=== PATIENT | female | born 1965 | race Caucasian/White ===

== ENCOUNTER → 2020-03-06 10:28 | Outpatient (BNVA) | payer MEDICAID, SELFPAY | PROVIDERS: PCP Physician Assistant; Visit Provider Physician Assistant | DX: Z76.89 Persons encountering health services in other specified circumstances (principal) ==

== ENCOUNTER → 2020-03-16 13:14 | Outpatient (BNVA) | payer MEDICAID, SELFPAY | PROVIDERS: Visit Provider Surgery | DX: E66.9 Obesity, unspecified (principal); Z68.34 Body mass index [BMI] 34.0-34.9, adult; Z90.3 Acquired absence of stomach [part of]; Z71.3 Dietary counseling and surveillance | CPT/HCPCS: 99212; 99214 ==

== ENCOUNTER → 2020-03-23 08:26 | Outpatient (BNVA) | payer MEDICAID, SELFPAY | PROVIDERS: PCP Physician Assistant; Referring Provider Physician Assistant; Visit Provider Physician Assistant | DX: A04.8 Other specified bacterial intestinal infections (principal) | CPT/HCPCS: 99211 ==

== ENCOUNTER 2020-03-24 15:05 | Outpatient (REF) | payer MEDICAID, SELFPAY ==
[2020-03-25 14:02] LABS: H Pylori Breath Test DETECTED (NOT DETECTED)
== END 2020-03-24 15:06 | disposition home or self-care (01) ==
LOC: HO.LNP 15:05
PROVIDERS: Visit Provider Surgery
DX: Z01.818 Encounter for other preprocedural examination (principal)
CPT/HCPCS: 83013

== ENCOUNTER 2020-03-27 12:28 | Outpatient (REF) | payer MEDICAID, SELFPAY ==
[2020-03-27 13:45] LABS: MANUAL DIFF FLAG NO
[2020-03-27 13:50] LABS: Basophils Absolute Auto 0.1 X10*3/uL (0.0-0.2); Basophils Percent Auto 0.8 % (0-2); Eosinophils Absolute Auto 0.1 X10*3/uL (0.0-0.4); Eosinophils Percent Auto 2.1 % (0-4); Hematocrit 40.4 % (37-47); Hemoglobin 13.1 g/dl (12.0-16.0); Imm Gran Abs Auto 0.01 X10*3/uL (0.00-0.03); Imm Gran Pct Auto 0.2 % (0.0-0.4); Lymphocytes Absolute Auto 2.6 X10*3/uL (1.2-4.9); Lymphocytes Percent Auto 38.9 % (20-40); Mean Corpuscular HGB Conc 32.4 g/dl (31.0-35.0); Mean Corpuscular Hemoglobin 29.7 pg (27.0-33.0); Mean Corpuscular Volume 91.6 fL (80-98); Mean Platelet Volume 9.8 fL (9.4-12.3); Monocytes Absolute Auto 0.5 X10*3/uL (0.1-1.2); Monocytes Percent Auto 6.8 % (2-11); Neutrophils Absolute Auto 3.4 X10*3/uL (2.0-8.3); Neutrophils Percent Auto 51.2 % (45-73); Platelet Count 318 X10*3/uL (160-400); Red Blood Count 4.41 X10*6/uL (4.20-5.50); Red Cell Distribution Width 13.4 % (11.0-16.0); White Blood Count 6.6 X10*3/uL (4.8-10.8)
[2020-03-27 14:22] LABS: C Reactive Protein 0.84 mg/dL (< or = 0.50); Iron 88 mcg/dL (30-160); Percent Iron Saturation 28 % (15-50); Total Iron Binding Capacity 319 mcg/dL (228-428); Unsaturated Iron Binding 231 ug/dL
[2020-03-27 14:25] LABS: Estimated Average Glucose 114 mg/dL; Hemoglobin A1c % 5.6 %
[2020-03-27 14:44] LABS: Ferritin 60 ng/mL (10-250); TSH reflex Free T4 0.92 mIU/mL (0.32-4.0); Vitamin D 25-OH Total 49.4 ng/mL (>30)
[2020-03-27 15:01] LABS: Folate 2.6 ng/mL (> or = 4.0); Vitamin B12 779 pg/mL (200-900)
[2020-03-30 12:17] LABS: Insulin Level Total 37.8 uIU/mL
[2020-03-30 20:26] LABS: Calcium (PTHI) 9.6 mg/dL (8.6-10.4); PTHI 20 pg/mL (14-64)
[2020-03-31 02:56] LABS: Zinc 91 mcg/dL (60-130)
[2020-04-01 18:56] LABS: Vitamin A 60 mcg/dL (38-98)
[2020-04-02 14:41] LABS: Vitamin B1 29 nmol/L (8-30)
== END 2020-03-27 12:29 | disposition home or self-care (01) ==
LOC: HO.LAB 12:28
PROVIDERS: Visit Provider Physician Assistant
DX: E66.3 Overweight (principal); Z68.35 Body mass index [BMI] 35.0-35.9, adult; M32.9 Systemic lupus erythematosus, unspecified; Z98.84 Bariatric surgery status
CPT/HCPCS: 36415; 82306; 82607; 82728; 82746; 83036; 83525; 83540; 83970; 84425; 84443; 84590; 84630; 85025; 86140

== ENCOUNTER → 2020-04-20 14:23 | Outpatient (BNVA) | payer MEDICAID, SELFPAY | PROVIDERS: Visit Provider Physician Assistant | DX: Z76.89 Persons encountering health services in other specified circumstances (principal) ==

== ENCOUNTER 2020-05-08 12:50 | Outpatient (REF) | payer MEDICAID, SELFPAY ==
[2020-05-09 15:53] LABS: H Pylori Breath Test NOT DETECTED (NOT DETECTED)
== END 2020-05-08 12:51 | disposition home or self-care (01) ==
LOC: HO.LNP 12:50
PROVIDERS: PCP Physician Assistant; Visit Provider Physician Assistant
DX: Z11.0 Encounter for screening for intestinal infectious diseases (principal)
CPT/HCPCS: 83013; 99211

== ENCOUNTER → 2020-05-12 08:20 | Outpatient (BNVA) | payer MEDICAID, SELFPAY | PROVIDERS: PCP Physician Assistant; Visit Provider Dietitian, Registered | DX: Z76.89 Persons encountering health services in other specified circumstances (principal) ==

== ENCOUNTER → 2020-07-07 15:44 | Outpatient (BNVA) | payer MEDICAID, SELFPAY | PROVIDERS: PCP Family Medicine; Visit Provider Surgery | DX: E66.3 Overweight (principal); Z68.29 Body mass index [BMI] 29.0-29.9, adult | CPT/HCPCS: 99212 ==

== ENCOUNTER → 2020-08-12 13:35 | Outpatient (BNVA) | payer MEDICAID, SELFPAY | PROVIDERS: PCP Family Medicine; Visit Provider Dietitian, Registered ==

== ENCOUNTER 2020-08-27 11:50 | Outpatient (REF) | payer MEDICAID, SELFPAY ==
[2020-08-27 12:20] LABS: MANUAL DIFF FLAG NO
[2020-08-27 12:22] LABS: Basophils Percent Auto 0.4 % (0-2); Eosinophils Absolute Auto 0.1 X10*3/uL (0.0-0.4); Eosinophils Percent Auto 1.4 % (0-4); Hemoglobin 12.4 g/dl (12.0-16.0); Imm Gran Abs Auto 0.01 X10*3/uL (0.00-0.03); Imm Gran Pct Auto 0.1 % (0.0-0.4); Lymphocytes Absolute Auto 2.4 X10*3/uL (1.2-4.9); Lymphocytes Percent Auto 34.6 % (20-40); Mean Corpuscular HGB Conc 33.5 g/dl (31.0-35.0); Mean Corpuscular Hemoglobin 31.6 pg (27.0-33.0); Mean Corpuscular Volume 94.4 fL (80-98); Mean Platelet Volume 9.3 fL (9.4-12.3); Monocytes Absolute Auto 0.4 X10*3/uL (0.1-1.2); Monocytes Percent Auto 5.9 % (2-11); Neutrophils Percent Auto 57.6 % (45-73); Platelet Count 306 X10*3/uL (160-400); Red Blood Count 3.92 X10*6/uL (4.20-5.50); Red Cell Distribution Width 12.7 % (11.0-16.0)
[2020-08-27 12:43] LABS: Alanine Aminotransferase 9 U/L (0-31); Albumin Level 4.1 g/dL (3.5-5.0); Alkaline Phosphatase 92 U/L (39-117); Anion Gap 11 (12-20); Aspartate Amino Transferase 14 U/L (5-31); Bilirubin Total 0.4 mg/dL (0.0-1.0); Blood Urea Nitrogen 20 mg/dL (9-16); C Reactive Protein 1.06 mg/dL (< or = 0.50); Calcium 9.2 mg/dL (8.4-10.2); Carbon Dioxide 26 mmol/L (22-29); Chloride 108 mmol/L (96-108); Cholesterol 209 mg/dL; Estimated Glomerular Filt Rate > 60; Glucose Fasting 102 mg/dL (60-99); HDL Cholesterol 50 mg/dL; Iron 92 mcg/dL (30-160); LDL Cholesterol Calculated 134 mg/dl; Percent Iron Saturation 32 % (15-50); Potassium 4.4 mmol/L (3.3-5.1); Sodium 141 mmol/L (135-145); Total Iron Binding Capacity 292 mcg/dL (228-428); Total Protein 7.1 g/dL (6.5-8.0); Triglycerides 129 mg/dL; Unsaturated Iron Binding 200 ug/dL
[2020-08-27 13:04] LABS: Thyroid Stimulating Hormone 1.38 uIU/mL (0.32-4.0); Vitamin D 25-OH Total 63.5 ng/mL (>30)
[2020-08-27 13:17] LABS: Vitamin B12 687 pg/mL (200-900)
[2020-08-30 00:12] LABS: Zinc 85 mcg/dL (60-130)
[2020-08-31 09:17] LABS: Vitamin B1 17 nmol/L (8-30)
[2020-08-31 20:02] LABS: Vitamin A 47 mcg/dL (38-98)
== END 2020-08-27 11:51 | disposition home or self-care (01) ==
LOC: HO.LAB 11:50
PROVIDERS: PCP Nurse Practitioner; Visit Provider Surgery
DX: Z01.818 Encounter for other preprocedural examination (principal); K91.2 Postsurgical malabsorption, not elsewhere classified; Z90.3 Acquired absence of stomach [part of]
CPT/HCPCS: 36415; 80053; 80061; 82306; 82607; 83540; 84425; 84443; 84590; 84630; 85025; 86140

== ENCOUNTER → 2020-09-17 14:51 | Outpatient (BNVA) | payer MEDICAID, SELFPAY | PROVIDERS: PCP Nurse Practitioner; Referring Provider Nurse Practitioner; Visit Provider Surgery | DX: E66.3 Overweight (principal); Z68.27 Body mass index [BMI] 27.0-27.9, adult; Z90.3 Acquired absence of stomach [part of] | CPT/HCPCS: 99212 ==

== ENCOUNTER 2020-12-08 11:41 | Outpatient (REF) | payer MEDICAID, SELFPAY ==
[2020-12-08 12:57] LABS: MANUAL DIFF FLAG NO
[2020-12-08 13:15] LABS: Estimated Average Glucose 100 mg/dL; Hemoglobin A1c % 5.1 %
[2020-12-08 13:16] LABS: Alanine Aminotransferase 8 U/L (0-31); Alkaline Phosphatase 71 U/L (39-117); Anion Gap 12 (12-20); Aspartate Amino Transferase 16 U/L (5-31); Bilirubin Total 0.4 mg/dL (0.0-1.0); Blood Urea Nitrogen 18 mg/dL (9-16); C Reactive Protein 0.37 mg/dL (< or = 0.50); Calcium 9.2 mg/dL (8.4-10.2); Carbon Dioxide 23 mmol/L (22-29); Chloride 111 mmol/L (96-108); Cholesterol 187 mg/dL; Estimated Glomerular Filt Rate > 60; Glucose Fasting 99 mg/dL (60-99); HDL Cholesterol 46 mg/dL; Iron 85 mcg/dL (30-160); LDL Cholesterol Calculated 123 mg/dl; Percent Iron Saturation 35 % (15-50); Sodium 142 mmol/L (135-145); Total Iron Binding Capacity 246 mcg/dL (228-428); Total Protein 6.9 g/dL (6.5-8.0); Triglycerides 91 mg/dL; Unsaturated Iron Binding 161 ug/dL
[2020-12-08 13:27] LABS: Basophils Percent Auto 0.7 % (0-2); Eosinophils Absolute Auto 0.1 X10*3/uL (0.0-0.4); Eosinophils Percent Auto 2.4 % (0-4); Hematocrit 35.7 % (37-47); Hemoglobin 11.8 g/dl (12.0-16.0); Imm Gran Abs Auto 0.01 X10*3/uL (0.00-0.03); Imm Gran Pct Auto 0.2 % (0.0-0.4); Lymphocytes Absolute Auto 2.3 X10*3/uL (1.2-4.9); Lymphocytes Percent Auto 41.7 % (20-40); Mean Corpuscular HGB Conc 33.1 g/dl (31.0-35.0); Mean Corpuscular Hemoglobin 31.1 pg (27.0-33.0); Mean Corpuscular Volume 93.9 fL (80-98); Mean Platelet Volume 9.4 fL (9.4-12.3); Monocytes Absolute Auto 0.4 X10*3/uL (0.1-1.2); Monocytes Percent Auto 6.5 % (2-11); Neutrophils Absolute Auto 2.6 X10*3/uL (2.0-8.3); Neutrophils Percent Auto 48.5 % (45-73); Platelet Count 313 X10*3/uL (160-400); Red Cell Distribution Width 12.7 % (11.0-16.0); White Blood Count 5.4 X10*3/uL (4.8-10.8)
[2020-12-08 13:40] LABS: Thyroid Stimulating Hormone 0.91 uIU/mL (0.32-4.0); Vitamin D 25-OH Total 73.5 ng/mL (>30)
[2020-12-09 16:28] LABS: Vitamin B12 928 pg/mL (200-900)
[2020-12-12 10:10] LABS: Vitamin B1 20 nmol/L (8-30)
[2020-12-12 11:56] LABS: Zinc 74 mcg/dL (60-130)
[2020-12-12 19:52] LABS: Vitamin A 46 mcg/dL (38-98)
== END 2020-12-08 11:42 | disposition home or self-care (01) ==
LOC: HO.LAB 11:41
PROVIDERS: PCP Nurse Practitioner; Visit Provider Surgery
DX: Z01.818 Encounter for other preprocedural examination (principal); K91.2 Postsurgical malabsorption, not elsewhere classified; Z90.3 Acquired absence of stomach [part of]
CPT/HCPCS: 36415; 80053; 80061; 82306; 82607; 83036; 83540; 84425; 84443; 84590; 84630; 85025; 86140

== ENCOUNTER → 2020-12-11 14:13 | Outpatient (BNVA) | payer MEDICAID, SELFPAY | PROVIDERS: PCP Nurse Practitioner; Referring Provider Nurse Practitioner; Visit Provider Surgery | DX: Z90.3 Acquired absence of stomach [part of] (principal) | CPT/HCPCS: 99212 ==

== ENCOUNTER 2021-05-31 19:59 | Inpatient (IN) | payer MEDICAID, SELFPAY ==
--- NOTE | ~2021-05-31 | CT_ITS ---
EXAMINATION: CT ABDOMEN AND PELVIS WITHOUT CONTRAST CLINICAL INFORMATION: Left flank pain COMPARISON: None TECHNIQUE: Multidetector volumetric imaging was performed from the superior aspect of the liver through the pubic symphysis. Sagittal and coronal reformatted images were obtained on the technologist's workstation. This CT examination was performed using dose optimization techniques as appropriate, variously including the following: *Automated exposure control *Adjustment of mA and/or kV according to patient size (this includes techniques or standardized protocols for targeted exams where dose is matched to indication/reason for exam; i.e. extremities or head) *Use of iterative reconstruction technique DLP: 455 mGy-cm FINDINGS: LUNG BASES: The visualized lung bases are unremarkable. LIVER, GALLBLADDER, AND BILIARY TREE: The liver is normal in size, shape, and attenuation. No focal hepatic lesion or biliary ductal dilatation is present. Cholecystectomy. PANCREAS: Unremarkable. SPLEEN: Unremarkable. ADRENAL GLANDS: Unremarkable. KIDNEYS AND URETERS: There is a 7 x 5 mm stone within the distal left ureter, just proximal to the ureterovesical junction and a 2 mm stone just above. There is moderate upstream hydroureter and mild interstitial left hydronephrosis and perinephric stranding. Additional urinary calculi. BLADDER: Unremarkable. GASTROINTESTINAL TRACT: Sleeve gastrectomy. The small and large bowel are unremarkable. The appendix is unremarkable. ABDOMINAL WALL: Evidence of previous abdominoplasty. There is a 4.5 cm well-circumscribed fluid collection within the subcutaneous fat along the right flank, chronic in appearance possibly an old seroma. There are 2 additional flat fluid collections within the lower abdominal ventral subcutaneous fat immediately superficial to the rectus abdominis, measuring approximately 6.9 x 1.1 x 4.3 cm and 4.4 x 0.8 x 1.9 cm. Dystrophic calcifications present within the subcutaneous fat posteriorly likely injection granulomas. LYMPH NODES: Normal. VASCULAR: Unremarkable. PELVIC VISCERA: Unremarkable. OSSEOUS STRUCTURES: No acute or suspicious osseous abnormalities. Lumbar spondylosis. CT/CT abdomen pelvis wo con IMPRESSION: * There is a 7 x 5 mm stone within the distal LEFT ureter just proximal to the ureterovesical junction associated with moderate upstream hydroureter and mild hydronephrosis/perinephric stranding. * There is a 2 mm stone just above the above-described stone within the distal left ureter. * Evidence of previous abdominal plasty with probable seroma is within the ventral subcutaneous fat and right flank. Fleischner guidelines were followed.
--- NOTE | ~2021-05-31 | FL_ITS ---
EXAMINATION: Intraoperative fluoroscopy CLINICAL INFORMATION: Left kidney stone removal with stent placement. COMPARISON: None. TECHNIQUE: Intraoperative fluoroscopy was provided for use by Dr. Robins. A total of 3 images were saved to PACS. A radiologist was not present during imaging. Today's dictation is only for administrative purposes to document intraoperative fluoroscopic usage. TOTAL FLUOROSCOPIC TIME: 25 seconds FL/FL guidance in OR FINDINGS~\^^ Intraoperative fluoroscopy provided for use by Dr. Robins. Please see operative note for detailed findings.
[2021-05-31 20:01] VITALS: BP 120/73; PULSE 70; RESP 16; TEMP 36.1; O2SAT 100; BMI 23.1
[2021-05-31 20:24] LABS: MANUAL DIFF FLAG NO
[2021-05-31 20:26] LABS: Basophils Absolute Auto 0.1 X10*3/uL (0.0-0.2); Basophils Percent Auto 0.5 % (0-2); Eosinophils Absolute Auto 0.2 X10*3/uL (0.0-0.4); Eosinophils Percent Auto 1.5 % (0-4); Hemoglobin 10.6 g/dl (12.0-16.0); Imm Gran Abs Auto 0.03 X10*3/uL (0.00-0.03); Imm Gran Pct Auto 0.3 % (0.0-0.4); Lymphocytes Absolute Auto 3.6 X10*3/uL (1.2-4.9); Lymphocytes Percent Auto 32.9 % (20-40); Mean Corpuscular HGB Conc 33.1 g/dl (31.0-35.0); Mean Corpuscular Hemoglobin 30.8 pg (27.0-33.0); Mean Platelet Volume 8.7 fL (9.4-12.3); Monocytes Absolute Auto 0.9 X10*3/uL (0.1-1.2); Monocytes Percent Auto 8.4 % (2-11); Neutrophils Absolute Auto 6.1 x10*3/uL (2.0-8.3); Neutrophils Percent Auto 56.4 % (45-73); Platelet Count 326 X10*3/uL (160-400); Red Blood Count 3.44 X10*6/uL (4.20-5.50); White Blood Count 10.8 X10*3/uL (4.8-10.8)
[2021-05-31 20:30] LABS: Appearance Urine CLEAR; Color Urine YELLOW; Glucose Urine UA NEG (NEG); Leukocyte Esterase Urine NEG (NEG); Nitrite Urine NEG (NEG); Specific Gravity - Urine <= 1.005 (1.005-1.025); UACC Culture Trigger NO; Urine Blood 1+ (NEG); Urine Ketones NEG (NEG); Urine Protein NEG (NEG-TRACE)
[2021-05-31 20:40] LABS: Alanine Aminotransferase 14 U/L (0-31); Albumin Level 3.6 g/dL (3.5-5.0); Alkaline Phosphatase 84 U/L (39-117); Anion Gap 11 (12-20); Aspartate Amino Transferase 19 U/L (5-31); Bilirubin Total 0.2 mg/dL (0.0-1.0); Blood Urea Nitrogen 27 mg/dL (9-16); Calcium 9.1 mg/dL (8.4-10.2); Carbon Dioxide 27 mmol/L (22-29); Chloride 106 mmol/L (96-108); Creatinine Clr Calc Pharmacy 52.7; Estimated Glomerular Filt Rate 55; Glucose Random 100 mg/dL (60-115); Lipase 48 U/L (8-78); Potassium 3.8 mmol/L (3.3-5.1); Sodium 140 mmol/L (135-145); Total Protein 6.7 g/dL (6.5-8.0)
[2021-05-31 20:43] LABS: COVID-19 Test Negative (Negative)
[2021-05-31 20:45] LABS: WBC Urine 0-2 /HPF (0-4)
[2021-05-31 20:47] LABS: Squamous Epithelial Cell Urine TRACE /LPF
[2021-06-01] VITALS (10 sets, daily range): BP systolic 92–128; BP diastolic 45–69; PULSE 66–90; RESP 12–20; TEMP 36.6–36.9; O2SAT 99–100; BMI 23.1
--- NOTE | 2021-06-01 04:16 | ED.ABDPAIN ---
HPI - Abdominal Pain General Chief Complaint: Abdominal Pain Stated Complaint: side/abd pain Time Seen by Provider: 05/31/21 21:30 Source: patient Mode of arrival: ambulatory History of Present Illness HPI narrative: Is a 55-year-old female without significant past medical history of presents with left-sided lower back/flank/left lower quadrant pain for approximately 2 weeks without associated fever, chills, but she states some nausea without vomiting and denies diarrhea and has had some urinary frequency but otherwise denies any pain or burning. She denies any history of kidney stones. Related Data Home Medications Medication Instructions Recorded Confirmed calcium carbonate 500 mg calcium 500 mg PO BID 03/16/20 12/11/20 (1,250 mg) tablet duloxetine 60 mg capsule,delayed 60 mg PO BID 03/16/20 12/11/20 release (Cymbalta) [id number] 45 mg-folic cap PO DAILY cap 03/16/20 12/11/20 acid 800 mcg-vit K 120 mcg capsule (Bariatric Multivitamins) topiramate 100 mg tablet 100 mg PO DAILY 04/20/20 12/11/20 biotin 10,000 mcg capsule 10,000 mcg PO DAILY cap 12/11/20 12/11/20 cyanocobalamin (vitamin B-12) 1,000 mcg PO DAILY 12/11/20 12/11/20 1,000 mcg capsule vitamin B complex (B 1 tab PO DAILY 12/11/20 12/11/20 Complex-Vitamin B12) Previous Rx's Medication Instructions Recorded folic acid 400 mcg tablet 0.4 mg PO DAILY #30 tab 03/30/20 Allergies Allergy/AdvReac Type Severity Reaction Status Date / Time Penicillins [PCN] Allergy Severe RASH, Verified 05/31/21 20:05 ANAPHYLAXIS Sulfa (Sulfonamide Allergy Mild RASH Verified 05/31/21 20:05 Antibiotics) [SULFA (SULFONAMIDE ANTIBIOTICS)] Bactrim Allergy Unknown Unknown Uncoded 05/31/21 20:05 Review of Systems Review of Systems Pertinent positives and negatives as stated in HPI 10 point review of systems is otherwise negative. Physical Exam Vital Signs: Vital Signs: Last Vital Signs Temp 98.2 F 06/01/21 02:51 Pulse 72 06/01/21 02:51 Resp 16 06/01/21 02:51 BP 128/69 06/01/21 02:51 Pulse Ox 100 06/01/21 02:51 BMI result Body Mass Index 23.1 VITAL SIGNS: Reviewed. GENERAL: Well developed, well nourished, in no acute distress. HEAD: Normocephalic/atraumatic EYES: PERRLA, EOMI OROPHARYNX: no oral lesions noted, posterior pharynx clear LUNGS: Normal breath sounds. No adventitious sounds or accessory muscle use. SpO2<100> CARDIOVASCULAR: Regular rate and rhythm without noted murmurs ABDOMEN: Soft, tenderness on palpation of the left lower quadrant as well as across left flank without rebound, non-distended with bowel sounds. MUSCULOSKELETAL: No tenderness, deformities, or effusions noted on gross inspection. EXTREMITIES: No cyanosis, clubbing or edema. SKIN: Inspection of the skin reveals no rashes NEUROLOGIC: Alert and oriented x 4. Strength and sensation to light touch were grossly intact x 4. Course Course Course Narrative: 55-year-old female with history and clinical presentation suggestive possible renal colic versus diverticulitis, however on Review of all investigations most consistent with renal colic with hematuria. Review of all investigations indicates there is worsening creatinine function with a large stone and hydro. Patient's pain is otherwise controlled after receiving combination analgesics and the case was discussed with Urology with recommendations to admit for stone removal. I discussed case with inpatient hospitalist who accepts admission. MDM - Abdominal Pain Lab Data Result diagrams: 05/31/21 20:18 05/31/21 20:18 Labs: Lab Results 05/31/21 05/31/21 05/31/21 Range/Units 20:14 20:14 20:18 WBC 10.8 (4.8-10.8) X10*3/uL RBC 3.44 L (4.20-5.50) X10*6/uL Hgb 10.6 L (12.0-16.0) g/dl Hct 32.0 L (37.0-47.0) % MCV 93.0 (80.0-98.0) fL MCH 30.8 (27.0-33.0) pg MCHC 33.1 (31.0-35.0) g/dl RDW 13.0 (11.0-16.0) % Plt Count 326 (160-400) X10*3/uL MPV 8.7 L (9.4-12.3) fL Immature Gran % (Auto) 0.3 (0.0-0.4) % Neut % (Auto) 56.4 (45-73) % Lymph % (Auto) 32.9 (20-40) % [place] % (Auto) 8.4 (2-11) % Eos % (Auto) 1.5 (0-4) % Baso % (Auto) 0.5 (0-2) % Lymph # (Auto) 3.6 (1.2-4.9) X10*3/uL [place] # (Auto) 0.9 (0.1-1.2) X10*3/uL Eos # (Auto) 0.2 (0.0-0.4) X10*3/uL Baso # (Auto) 0.1 (0.0-0.2) X10*3/uL Abs Immat Gran (auto) 0.03 (0.00-0.03) X10*3/uL Absolute Neuts (auto) 6.1 (2.0-8.3) x10*3/uL Absolute Nucleated RBC 0.000 (0.0-0.012) X10*3/uL Nucleated RBC % (auto) 0.0 (0.0-0.2) /100WBC Sodium (135-145) mmol/L Potassium (3.3-5.1) mmol/L Chloride (96-108) mmol/L Carbon Dioxide (22-29) mmol/L Anion Gap (12-20) BUN (9-16) mg/dL Creatinine (0.5-1.4) mg/dL Estim Creat Clear Calc Estimated GFR Random Glucose (60-115) mg/dL Calcium (8.4-10.2) mg/dL Total Bilirubin (0.0-1.0) mg/dL AST (5-31) U/L ALT (0-31) U/L Alkaline Phosphatase (39-117) U/L Total Protein (6.5-8.0) g/dL Albumin (3.5-5.0) g/dL Lipase (8-78) U/L Urine Color YELLOW Urine Appearance CLEAR Urine pH 6.0 (5.0-8.0) Ur Specific [place] <= 1.005 (1.005-1.025) Urine Protein NEG (NEG-TRACE) MG/DL Urine Glucose (UA) NEG (NEG) MG/DL Urine Ketones NEG (NEG) MG/DL Urine Blood 1+ H (NEG) Urine Nitrite NEG (NEG) Ur Leukocyte Esterase NEG (NEG) Urine RBC 1-4 (0) /HPF Urine WBC 0-2 (0-4) /HPF Ur Squamous Epith Cells TRACE /LPF Urine Bacteria NONE /LPF COVID-19 (FREDI) Negative (Negative) COVID-19 Clin Com See Note 05/31/21 Range/Units 20:18 WBC (4.8-10.8) X10*3/uL RBC (4.20-5.50) X10*6/uL Hgb (12.0-16.0) g/dl Hct (37.0-47.0) % MCV (80.0-98.0) fL MCH (27.0-33.0) pg MCHC (31.0-35.0) g/dl RDW (11.0-16.0) % Plt Count (160-400) X10*3/uL MPV (9.4-12.3) fL Immature Gran % (Auto) (0.0-0.4) % Neut % (Auto) (45-73) % Lymph % (Auto) (20-40) % [place] % (Auto) (2-11) % Eos % (Auto) (0-4) % Baso % (Auto) (0-2) % Lymph # (Auto) (1.2-4.9) X10*3/uL [place] # (Auto) (0.1-1.2) X10*3/uL Eos # (Auto) (0.0-0.4) X10*3/uL Baso # (Auto) (0.0-0.2) X10*3/uL Abs Immat Gran (auto) (0.00-0.03) X10*3/uL Absolute Neuts (auto) (2.0-8.3) x10*3/uL Absolute Nucleated RBC (0.0-0.012) X10*3/uL Nucleated RBC % (auto) (0.0-0.2) /100WBC Sodium 140 (135-145) mmol/L Potassium 3.8 (3.3-5.1) mmol/L Chloride 106 (96-108) mmol/L Carbon Dioxide 27 (22-29) mmol/L Anion Gap 11 L (12-20) BUN 27 H (9-16) mg/dL Creatinine 1.04 (0.5-1.4) mg/dL Estim Creat Clear Calc 52.7 Estimated GFR 55 Random Glucose 100 (60-115) mg/dL Calcium 9.1 (8.4-10.2) mg/dL Total Bilirubin 0.2 (0.0-1.0) mg/dL AST 19 (5-31) U/L ALT 14 (0-31) U/L Alkaline Phosphatase 84 (39-117) U/L Total Protein 6.7 (6.5-8.0) g/dL Albumin 3.6 (3.5-5.0) g/dL Lipase 48 (8-78) U/L Urine Color Urine Appearance Urine pH (5.0-8.0) Ur Specific [place] (1.005-1.025) Urine Protein (NEG-TRACE) MG/DL Urine Glucose (UA) (NEG) MG/DL Urine Ketones (NEG) MG/DL Urine Blood (NEG) Urine Nitrite (NEG) Ur Leukocyte Esterase (NEG) Urine RBC (0) /HPF Urine WBC (0-4) /HPF Ur Squamous Epith Cells /LPF Urine Bacteria /LPF COVID-19 (FREDI) (Negative) COVID-19 Clin Com Discharge Plan Discharge Clinical Impression: Renal colic, Ureterolithiasis, Hydronephrosis Patient Disposition: Admitted As Inpatient Prescriptions: No Action folic acid 400 mcg tablet 0.4 mg PO DAILY Qty: 30 RF: 3 duloxetine [Cymbalta] 60 mg capsule,delayed release(DR/EC) 60 mg PO BID RF: 0 Bariatric Multivitamins 45 mg iron- 800 mcg-120 mcg capsule PO DAILY RF: 0 calcium carbonate 500 mg calcium (1,250 mg) tablet 500 mg PO BID RF: 0 vitamin B complex [B Complex-Vitamin B12] Tablet 1 tab PO DAILY RF: 0 cyanocobalamin (vitamin B-12) 1,000 mcg capsule 1,000 mcg PO DAILY RF: 0 biotin 10,000 mcg capsule 10,000 mcg PO DAILY RF: 0 topiramate 100 mg tablet 100 mg PO DAILY RF: 0 PMFSH Past Medical History Source: nursing notes reviewed Medical History Anxiety Depression Fibromyalgia Glaucoma Intestinal malabsorption following gastrectomy Surgical History History of abdominoplasty History of appendectomy History of repair of hiatal hernia History of sleeve gastrectomy History of tubal ligation S/P laparoscopic cholecystectomy Family History Family History Father Myocardial infarction Mother Metastasis from rectal cancer Sister No problems noted. Brother No problems noted. Maternal Uncle Prostate cancer Lung cancer Maternal Aunt Breast cancer Son No problems noted. Daughter No problems noted. Daughter No problems noted. Social History Social History Alcohol intake: current Alcohol intake frequency: a few times a month Patient Tobacco Use Status: Never used Tobacco Advance Directives: No Advance Directives Information Provided: Yes Patient : No
[2021-06-01] MEDS: Acetaminophen 325 MG TABLET 975 MG PO (04:31)
[2021-06-01] MEDS: Ketorolac Tromethamine 30 MG/ML VIAL 15 MG IM (04:31)
--- NOTE | 2021-06-01 04:35 | PC.NURSE ---
MD at bedside, plan for CT, medicated per JUL.
--- NOTE | 2021-06-01 06:32 | PC.NURSE ---
IV established, pt aware of plan for admission. Med Rec complete. Pt remains pain free at this time. Continue to monitor.
[2021-06-01] MEDS: 0.9 % Sodium Chloride 1,000 ML 100 ML IVCONT (08:07)
--- NOTE | 2021-06-01 09:35 | PM.IMHP ---
History of Present Illness Date of Service: 06/01/21 Attending physician on admission: Carter Robins Chief Complaint: Left flank pain 55-year-old female without significant PMHx. Presented ambulatory to the ED last night with left-sided lower back/flank/left lower quadrant pain for approximately 2 weeks without associated fever, chills, but she states some nausea without vomiting. Denied diarrhea and has had some urinary frequency but otherwise denies any pain or burning.? She denies any history of kidney stones. No FHx. MEDICATIONS AT HOME: Cymbalta. Topiramate, Calcium, MVI, Biotin, Vit B, Vit D, Iron. ALLERGIES: PCN, Sulfa, Bactrim FHx: Father of a heart attack, mother of cancer. Social Hx: Lives by herself with her dog. BETTINA is her daughter. She has no designated HCP. Physical Exam: On exam the patient is fully A&O and appropriate. She's resting on the gourney and looks thoroughly comfortable and nontoxic. Breathing easy with Sat 100% on room air. HR 80. BP110/62. Afebrile. No JVD at 20?. Chest is CTA w normal exp phase. RRR, normal S1 and S2, w no M or G. Abdomen is benign with no CVAT. No edema. LABORATORY DATA: Below. Notibly, normal WBC. Bun/Creat 27/1.0 (baseline 18/0.8). CT abd: 7mm stone within the distal LEFT ureter just proximal to the ureterovesical junction associated with moderate upstream hydroureter and mild hydronephrosis/perinephric stranding. There is a 2 mm stone just above the above-described stone within the distal left ureter. IMPRESSION: Healthy 55 yo woman with left ureteral stones with moderate hydroureter, mild hydronephrosis, and mild ROBIN. The patient's pain has been well controlled by Toradol and Tylenol. Hydrating with LR @ 100cc/hr. Plan cysto and stone removal with Dr. Robins this afternoon. I've discussed the paitent with him. NPO. [facility] Medical History Anxiety Depression Fibromyalgia Glaucoma Intestinal malabsorption following gastrectomy Family History Father Myocardial infarction Mother Metastasis from rectal cancer Sister No problems noted. Brother No problems noted. Maternal Uncle Prostate cancer Lung cancer Maternal Aunt Breast cancer Son No problems noted. Daughter No problems noted. Daughter No problems noted. Surgical History History of abdominoplasty History of appendectomy History of repair of hiatal hernia History of sleeve gastrectomy History of tubal ligation S/P laparoscopic cholecystectomy Social History Alcohol intake: current Alcohol intake frequency: a few times a month Patient Tobacco Use Status: Never used Tobacco Advance Directives: No Advance Directives Information Provided: Yes Patient : No Meds Allergies Allergy/AdvReac Type Severity Reaction Status Date / Time Penicillins [PCN] Allergy Severe RASH, Verified 05/31/21 20:05 ANAPHYLAXIS Sulfa (Sulfonamide Allergy Mild RASH Verified 05/31/21 20:05 Antibiotics) [SULFA (SULFONAMIDE ANTIBIOTICS)] Bactrim Allergy Unknown Unknown Uncoded 05/31/21 20:05 Active Medications: Current Medications Lactated Ringer's (Lr) 1,000 mls @ 100 mls/hr IVCONT .Q10H JESSICA Levofloxacin (Levaquin) 500 mg in 100 mls @ 100 mls/hr IV ONCE ONE Stop: 06/01/21 10:28 Ketorolac Tromethamine (Ketorolac Tromethamine 30 Mg/Ml Vial) 15 mg IVPUSH Q6H PRN PRN Reason: Breakthrough Pain Home Medications Medication Instructions Recorded Confirmed Last Taken Type duloxetine 60 mg capsule,delayed 120 mg PO BEDTIME 03/16/20 06/01/21 05/30/21 History release (Cymbalta) topiramate 100 mg tablet 300 mg PO BEDTIME 04/20/20 06/01/21 05/30/21 History bimatoprost 0.01 % eye drops 1 drp OPHTHALMIC (EYE) BEDTIME 06/01/21 06/01/21 05/30/21 History (Lumigan) calcium carbonate 500 mg calcium 500 mg PO DAILY 06/01/21 06/01/21 05/30/21 History (1,250 mg) tablet cholecalciferol (vitamin D3) 25 25 mcg PO DAILY 06/01/21 06/01/21 05/30/21 History mcg (1,000 unit) tablet (Vitamin D3) cyanocobalamin (vitamin B-12) 1,000 mcg PO DAILY 06/01/21 06/01/21 05/30/21 History 1,000 mcg tablet ferrous sulfate 324 mg (65 mg 324 mg PO DAILY 06/01/21 06/01/21 05/30/21 History iron) tablet,delayed release folic acid 400 mcg tablet 1 tab PO DAILY 06/01/21 06/01/21 05/30/21 History ibuprofen 200 mg tablet 400 mg PO Q6H PRN 06/01/21 06/01/21 Unknown History multivitamin 1 tab PO DAILY 06/01/21 06/01/21 05/30/21 History vitamin B complex 1 tab PO DAILY 06/01/21 06/01/21 05/30/21 History Physical Exam Vital Signs and Narrative: Vital Signs: Last Vital Signs Temp 97.9 F 06/01/21 08:41 Pulse 74 06/01/21 08:41 Resp 14 06/01/21 08:41 BP 97/54 L 06/01/21 08:41 Pulse Ox 100 06/01/21 08:41 BMI result Body Mass Index 23.1 Results Labs CBC and Chem 7: 05/31/21 20:18 05/31/21 20:18 Labs: Laboratory Results - last 24 hr 05/31/21 05/31/21 05/31/21 20:14 20:14 20:18 MCV 93.0 MCH 30.8 MCHC 33.1 RDW 13.0 Plt Count 326 MPV 8.7 L Immature Gran % (Auto) 0.3 Neut % (Auto) 56.4 Lymph % (Auto) 32.9 [place] % (Auto) 8.4 Eos % (Auto) 1.5 Baso % (Auto) 0.5 Lymph # (Auto) 3.6 [place] # (Auto) 0.9 Eos # (Auto) 0.2 Baso # (Auto) 0.1 Abs Immat Gran (auto) 0.03 Absolute Neuts (auto) 6.1 Absolute Nucleated RBC 0.000 Nucleated RBC % (auto) 0.0 Anion Gap Estim Creat Clear Calc Estimated GFR Random Glucose Calcium Total Bilirubin AST ALT Alkaline Phosphatase Total Protein Albumin Lipase Urine Color YELLOW Urine Appearance CLEAR Urine pH 6.0 Ur Specific [place] <= 1.005 Urine Protein NEG Urine Glucose (UA) NEG Urine Ketones NEG Urine Blood 1+ H Urine Nitrite NEG Ur Leukocyte Esterase NEG Urine RBC 1-4 Urine WBC 0-2 Ur Squamous Epith Cells TRACE Urine Bacteria NONE COVID-19 (FREDI) Negative COVID-19 Clin Com See Note 05/31/21 20:18 MCV MCH MCHC RDW Plt Count MPV Immature Gran % (Auto) Neut % (Auto) Lymph % (Auto) [place] % (Auto) Eos % (Auto) Baso % (Auto) Lymph # (Auto) [place] # (Auto) Eos # (Auto) Baso # (Auto) Abs Immat Gran (auto) Absolute Neuts (auto) Absolute Nucleated RBC Nucleated RBC % (auto) Anion Gap 11 L Estim Creat Clear Calc 52.7 Estimated GFR 55 Random Glucose 100 Calcium 9.1 Total Bilirubin 0.2 AST 19 ALT 14 Alkaline Phosphatase 84 Total Protein 6.7 Albumin 3.6 Lipase 48 Urine Color Urine Appearance Urine pH Ur Specific [place] Urine Protein Urine Glucose (UA) Urine Ketones Urine Blood Urine Nitrite Ur Leukocyte Esterase Urine RBC Urine WBC Ur Squamous Epith Cells Urine Bacteria COVID-19 (FREDI) COVID-19 Clin Com Imaging Radiologist's Impressions: Impressions Abdomen/Pelvis CT 06/01/21 04:50 IMPRESSION: * There is a 7 x 5 mm stone within the distal LEFT ureter just proximal to the ureterovesical junction associated with moderate upstream hydroureter and mild hydronephrosis/perinephric stranding. * There is a 2 mm stone just above the above-described stone within the distal left ureter. * Evidence of previous abdominal plasty with probable seroma is within the ventral subcutaneous fat and right flank. Fleischner guidelines were followed. Quality Stroke Does the patient have a stroke diagnosis?: No VTE Prior VTE?: No VTE Risk Level:: Surgical - low VTE Device Contraindication: Treatment Not Indicated VTE Drug Contraindication: Treatment Not Indicated
[2021-06-01] MEDS: levoFLOXacin/D5W 500 MG/100 ML PIGGYBACK 100 MG IV (10:25)
[2021-06-01] MEDS: Lactated Ringers 1,000 ML 100 ML IVCONT (10:25)
--- NOTE | 2021-06-01 12:51 | PM.UROCN ---
History of Present Illness Consult details Consult date: 06/01/21 Narrative: Charisma is a very pleasant female. She presents emergency room with left-sided lower flank pain CT imaging shows 8 mm distal left ureteric stone with hydroureteronephrosis Pain has been present ongoing for approximately 2 weeks Last night required parenteral pain medication for therapy Creatinine 1.04, calcium 9.1 Based on imaging discussed intervention which would include a left ureteroscopy Review of Systems Constitutional: Constitutional: Reports as per HPI and Reports no additional constitutional complaints Cardiovascular: Cardiovascular: Reports as per HPI and Reports no additional cardiovascular complaints Respiratory: Respiratory: Reports as per HPI and Reports no additional respiratory complaints Gastrointestinal: Gastrointestinal: Reports as per HPI and Reports no additional gastrointestinal complaints Genitourinary: Genitourinary: Reports as per HPI Musculoskeletal: Musculoskeletal: Reports no additional musculoskeletal complaints and Reports as per HPI Neurologic: Reports system reviewed and no additional complaints, except as documented and Reports as per HPI PMFSH Past Medical History Medical History Anxiety Depression Fibromyalgia Glaucoma Intestinal malabsorption following gastrectomy Family History Family History Father Myocardial infarction Mother Metastasis from rectal cancer Sister No problems noted. Brother No problems noted. Maternal Uncle Prostate cancer Lung cancer Maternal Aunt Breast cancer Son No problems noted. Daughter No problems noted. Daughter No problems noted. Surgical History Surgical History History of abdominoplasty History of appendectomy History of repair of hiatal hernia History of sleeve gastrectomy History of tubal ligation S/P laparoscopic cholecystectomy Social History Social History Alcohol intake: current Alcohol intake frequency: a few times a month Patient Tobacco Use Status: Never used Tobacco Advance Directives: No Advance Directives Information Provided: Yes Patient : No Meds Allergies Allergy/AdvReac Type Severity Reaction Status Date / Time Penicillins [PCN] Allergy Severe RASH, Verified 05/31/21 20:05 ANAPHYLAXIS Sulfa (Sulfonamide Allergy Mild RASH Verified 05/31/21 20:05 Antibiotics) [SULFA (SULFONAMIDE ANTIBIOTICS)] Bactrim Allergy Unknown Unknown Uncoded 05/31/21 20:05 Active Medications: Current Medications Lactated Ringer's (Lr) 1,000 mls @ 100 mls/hr IVCONT .Q10H JESSICA Last Admin: 06/01/21 10:25 Dose: 100 mls/hr Documented by: Ketorolac Tromethamine (Ketorolac Tromethamine 30 Mg/Ml Vial) 15 mg IVPUSH Q6H PRN PRN Reason: Breakthrough Pain Home Medications Medication Instructions Recorded Confirmed Last Taken Type duloxetine 60 mg capsule,delayed 120 mg PO BEDTIME 03/16/20 06/01/21 05/30/21 History release (Cymbalta) topiramate 100 mg tablet 300 mg PO BEDTIME 04/20/20 06/01/21 05/30/21 History bimatoprost 0.01 % eye drops 1 drp OPHTHALMIC (EYE) BEDTIME 06/01/21 06/01/21 05/30/21 History (Lumigan) calcium carbonate 500 mg calcium 500 mg PO DAILY 06/01/21 06/01/21 05/30/21 History (1,250 mg) tablet cholecalciferol (vitamin D3) 25 25 mcg PO DAILY 06/01/21 06/01/21 05/30/21 History mcg (1,000 unit) tablet (Vitamin D3) cyanocobalamin (vitamin B-12) 1,000 mcg PO DAILY 06/01/21 06/01/21 05/30/21 History 1,000 mcg tablet ferrous sulfate 324 mg (65 mg 324 mg PO DAILY 06/01/21 06/01/21 05/30/21 History iron) tablet,delayed release folic acid 400 mcg tablet 1 tab PO DAILY 06/01/21 06/01/21 05/30/21 History ibuprofen 200 mg tablet 400 mg PO Q6H PRN 06/01/21 06/01/21 Unknown History multivitamin 1 tab PO DAILY 06/01/21 06/01/21 05/30/21 History vitamin B complex 1 tab PO DAILY 06/01/21 06/01/21 05/30/21 History Physical Exam Vital Signs: Vital Signs: Last Vital Signs Temp 97.9 F 06/01/21 08:41 Pulse 74 06/01/21 08:41 Resp 14 06/01/21 08:41 BP 97/54 L 06/01/21 08:41 Pulse Ox 100 06/01/21 08:41 BMI result Body Mass Index 23.1 Const: General: cooperative, healthy appearing, comfortable and no acute distress Orientation/consciousness: patient oriented x3 HENMT: Face and sinus: Yes normal facial exam Mouth: moist mucous membranes Neck: Neck: Yes normal visual inspection, Yes full ROM and Yes trachea midline Chest: Chest palpation & inspection: normal inspection of the chest Resp: Effort & Inspection: normal respiratory effort, able to speak in complete sentences and no respiratory distress GI: Inspection: Yes normal to inspection Back/Spine/Pelvis: Cervical Spine: normal cervical lordosis Thoracic/Lumbar Spine: thoracic and lumbar spine normal to inspection Skin: General skin exam: no rashes or lesions noted Neuro: General: patient oriented x3, tone normal and moves all extremities Extrem: General: Yes normal to inspection and Yes capillary refill normal Results Labs Result diagrams: 05/31/21 20:18 05/31/21 20:18 Labs: Abnormal lab results 05/31/21 05/31/21 05/31/21 Range/Units 20:14 20:18 20:18 RBC 3.44 L (4.20-5.50) X10*6/uL Hgb 10.6 L (12.0-16.0) g/dl Hct 32.0 L (37.0-47.0) % MPV 8.7 L (9.4-12.3) fL Anion Gap 11 L (12-20) BUN 27 H (9-16) mg/dL Urine Blood 1+ H (NEG) Short CBC 05/31/21 Range/Units 20:18 WBC 10.8 (4.8-10.8) X10*3/uL Hgb 10.6 L (12.0-16.0) g/dl Hct 32.0 L (37.0-47.0) % Plt Count 326 (160-400) X10*3/uL BMP 05/31/21 20:18 Sodium 140 Potassium 3.8 Chloride 106 Carbon Dioxide 27 BUN 27 H Creatinine 1.04 Calcium 9.1 Liver Function 05/31/21 Range/Units 20:18 Total Bilirubin 0.2 (0.0-1.0) mg/dL AST 19 (5-31) U/L ALT 14 (0-31) U/L Alkaline Phosphatase 84 (39-117) U/L Albumin 3.6 (3.5-5.0) g/dL Urine 05/31/21 Range/Units 20:14 Urine Color YELLOW Urine Appearance CLEAR Urine pH 6.0 (5.0-8.0) Ur Specific [place] <= 1.005 (1.005-1.025) Urine Protein NEG (NEG-TRACE) MG/DL Urine Glucose (UA) NEG (NEG) MG/DL All other labs normal. Assessment and Plan (1) Hydronephrosis: Status: Acute (2) Ureterolithiasis: Status: Acute Ureteroscopy We discussed the nature of the decision and reasonable alternatives for performing the above surgery. Interventions include chemical dissolution, ESWL, ureteroscopy with laser lithotripsy and stent placement, PCNL. Options such as medical therapy were discussed. The relative uncertainties and benefits related to each alternate procedure were adequately discussed. General surgical risks including, but not limited to, pain, bleeding, infection, myocardial infarction, pulmonary embolus, deep vein thrombosis and cerebrovascular accident which may result in further hospitalization were discussed. Full disclosure of the procedure as well as all major risks, benefits and complications were discussed including but not limited to damage to the urethra, bladder and kidney infection, damage to the ureter, stent migration or malposition, scarring to the renal pelvis, remnant stone fragments, subsequent stone passage with need for secondary procedures. The overall secondary procedure rate is approximately 10-15%. The success rate of the procedure was discussed. Success of the procedure in the short-term does not necessarily guarantee that long-term success will be maintained. Suitable follow up will need to be maintained. The patient showed understanding of discussion and wishes to proceed with - cystoscopy, retrograde, ureteroscopy, possible lithotripsy/stone basketing and stent on the left side Left semi rigid ureteroscopy Procedures Date of Service Date of Service: 06/01/21
--- NOTE | 2021-06-01 16:08 | PC.NURSE ---
PT TAKE TO OR FOR SURGERY BY TRANSPORT.
--- NOTE | 2021-06-01 16:09 | HO.ANESPROP2 ---
HPI - Anesthesia Eval Consult details Narrative: 55 F for cystoscopy h/o seizures . last seizure 3 weeks ago . fibromyalgia . follows with neurolgist . s/p MRI , will follow up with neurologist [facility] Active Problems Active Problems: All Active Problems (Updated 06/01/21 @ 05:48 by Noy Reid MD) Renal colic (Acute) Ureterolithiasis (Acute) Hydronephrosis (Acute) History of sleeve gastrectomy (Acute) BMI 24.0-24.9, adult (Acute) Overweight (Acute) BMI 27.0-27.9,adult (Acute) BMI 29.0-29.9,adult (Acute) Intestinal malabsorption following gastrectomy (Acute) H. pylori infection (Acute) Past Medical History Medical History Anxiety Depression Fibromyalgia Glaucoma Intestinal malabsorption following gastrectomy Functional capacity: independent ambulation Family History Family History Father Myocardial infarction Mother Metastasis from rectal cancer Sister No problems noted. Brother No problems noted. Maternal Uncle Prostate cancer Lung cancer Maternal Aunt Breast cancer Son No problems noted. Daughter No problems noted. Daughter No problems noted. Family history of problems with anesthesia: No Surgical History Surgical History History of abdominoplasty History of appendectomy History of repair of hiatal hernia History of sleeve gastrectomy History of tubal ligation S/P laparoscopic cholecystectomy History of Problems with Anesthesia: No Social History Social History Alcohol intake: current Alcohol intake frequency: a few times a month Patient Tobacco Use Status: Never used Tobacco Advance Directives: No Advance Directives Information Provided: Yes Patient : No Meds Allergies Allergy/AdvReac Type Severity Reaction Status Date / Time Penicillins [PCN] Allergy Severe RASH, Verified 05/31/21 20:05 ANAPHYLAXIS Sulfa (Sulfonamide Allergy Mild RASH Verified 05/31/21 20:05 Antibiotics) [SULFA (SULFONAMIDE ANTIBIOTICS)] Bactrim Allergy Unknown Unknown Uncoded 05/31/21 20:05 Active Medications: Current Medications Lactated Ringer's (Lr) 1,000 mls @ 100 mls/hr IVCONT .Q10H JESSICA Last Admin: 06/01/21 10:25 Dose: 100 mls/hr Documented by: Ketorolac Tromethamine (Ketorolac Tromethamine 30 Mg/Ml Vial) 15 mg IVPUSH Q6H PRN PRN Reason: Breakthrough Pain Home Medications Medication Instructions Recorded Confirmed Last Taken Type duloxetine 60 mg capsule,delayed 120 mg PO BEDTIME 03/16/20 06/01/21 05/30/21 History release (Cymbalta) topiramate 100 mg tablet 300 mg PO BEDTIME 04/20/20 06/01/21 05/30/21 History bimatoprost 0.01 % eye drops 1 drp OPHTHALMIC (EYE) BEDTIME 06/01/21 06/01/21 05/30/21 History (Lumigan) calcium carbonate 500 mg calcium 500 mg PO DAILY 06/01/21 06/01/21 05/30/21 History (1,250 mg) tablet cholecalciferol (vitamin D3) 25 25 mcg PO DAILY 06/01/21 06/01/21 05/30/21 History mcg (1,000 unit) tablet (Vitamin D3) cyanocobalamin (vitamin B-12) 1,000 mcg PO DAILY 06/01/21 06/01/21 05/30/21 History 1,000 mcg tablet ferrous sulfate 324 mg (65 mg 324 mg PO DAILY 06/01/21 06/01/21 05/30/21 History iron) tablet,delayed release folic acid 400 mcg tablet 1 tab PO DAILY 06/01/21 06/01/21 05/30/21 History ibuprofen 200 mg tablet 400 mg PO Q6H PRN 06/01/21 06/01/21 Unknown History multivitamin 1 tab PO DAILY 06/01/21 06/01/21 05/30/21 History vitamin B complex 1 tab PO DAILY 06/01/21 06/01/21 05/30/21 History Exam Exam Date and Time: June 01, 2021 1609 Height,Weight and Vital Signs: Height 5 ft 4 in Weight 61.235 kg Last Vital Signs Temp 98.5 F 06/01/21 13:59 Pulse 75 06/01/21 13:59 Resp 20 06/01/21 13:59 BP 104/63 06/01/21 13:59 Pulse Ox 100 06/01/21 13:59 Pertinent Lab Results Pertinent Lab Results: Laboratory Tests 05/31/21 05/31/21 05/31/21 20:14 20:14 20:18 WBC 10.8 RBC 3.44 L Hgb 10.6 L Hct 32.0 L MCV 93.0 MCH 30.8 MCHC 33.1 RDW 13.0 Plt Count 326 MPV 8.7 L Immature Gran % (Auto) 0.3 Neut % (Auto) 56.4 Lymph % (Auto) 32.9 [place] % (Auto) 8.4 Eos % (Auto) 1.5 Baso % (Auto) 0.5 Lymph # (Auto) 3.6 [place] # (Auto) 0.9 Eos # (Auto) 0.2 Baso # (Auto) 0.1 Abs Immat Gran (auto) 0.03 Absolute Neuts (auto) 6.1 Absolute Nucleated RBC 0.000 Nucleated RBC % (auto) 0.0 Sodium Potassium Chloride Carbon Dioxide Anion Gap BUN Creatinine Estim Creat Clear Calc Estimated GFR Random Glucose Calcium Total Bilirubin AST ALT Alkaline Phosphatase Total Protein Albumin Lipase Urine Color YELLOW Urine Appearance CLEAR Urine pH 6.0 Ur Specific [place] <= 1.005 Urine Protein NEG Urine Glucose (UA) NEG Urine Ketones NEG Urine Blood 1+ H Urine Nitrite NEG Ur Leukocyte Esterase NEG Urine RBC 1-4 Urine WBC 0-2 Ur Squamous Epith Cells TRACE Urine Bacteria NONE COVID-19 (FREDI) Negative COVID-19 Clin Com See Note 05/31/21 20:18 WBC RBC Hgb Hct MCV MCH MCHC RDW Plt Count MPV Immature Gran % (Auto) Neut % (Auto) Lymph % (Auto) [place] % (Auto) Eos % (Auto) Baso % (Auto) Lymph # (Auto) [place] # (Auto) Eos # (Auto) Baso # (Auto) Abs Immat Gran (auto) Absolute Neuts (auto) Absolute Nucleated RBC Nucleated RBC % (auto) Sodium 140 Potassium 3.8 Chloride 106 Carbon Dioxide 27 Anion Gap 11 L BUN 27 H Creatinine 1.04 Estim Creat Clear Calc 52.7 Estimated GFR 55 Random Glucose 100 Calcium 9.1 Total Bilirubin 0.2 AST 19 ALT 14 Alkaline Phosphatase 84 Total Protein 6.7 Albumin 3.6 Lipase 48 Urine Color Urine Appearance Urine pH Ur Specific [place] Urine Protein Urine Glucose (UA) Urine Ketones Urine Blood Urine Nitrite Ur Leukocyte Esterase Urine RBC Urine WBC Ur Squamous Epith Cells Urine Bacteria COVID-19 (FREDI) COVID-19 Clin Com Airway Mallampati Class: II Neck ROM: Full Loose/Missing/Broken Teeth: Yes Heart: rrr Lungs: bl breath sounds Assessment and Plan Assessment Anesthesia Assessment: Anesthesia Plan Discussed Final Anesthetic Review Family History of Problems with Anesthesia: No History of Problems with Anesthesia: No NPO: Yes ASA Class: II Final Preanesthetic Review: Meds/Allgs Chart Reviewed and Anes Risks/Benef Reviewed Patient Risk: Intermediate Procedure Risk: Intermediate Anesthetic Plan Anesthetic Plan: GA Disposition: Inp. Admit - Standard Bed
--- NOTE | 2021-06-01 16:46 | MHC.SHP ---
Pre-Procedural Eval Section A Date of Service: 06/01/21 The patient is an INPATIENT: No Changes since office visit: No Cold of Flu in the past 2 weeks, No New Medical Problems, No Changes in Medication and No Patient answered all questions The History & Physical has been completed within 30 days and I have reviewed it.: Yes Section B Chief Complaint: Left ureteral stones Allergies: Allergies Allergy/AdvReac Type Severity Reaction Status Date / Time Penicillins [PCN] Allergy Severe RASH, Verified 05/31/21 20:05 ANAPHYLAXIS Sulfa (Sulfonamide Allergy Mild RASH Verified 05/31/21 20:05 Antibiotics) [SULFA (SULFONAMIDE ANTIBIOTICS)] Bactrim Allergy Unknown Unknown Uncoded 05/31/21 20:05 Plan Diagnosis/Plan: Unchanged ( cystoscopy left retrograde, left ureteroscopy with laser lithotripsy stone basketing and stent placement) I have reviewed the history and physical and performed a pertinent physical examination on my patient. No changes have occurred unless specified.
--- NOTE | 2021-06-01 17:22 | P.OP_ITS ---
Operative Note Operative Note Date of Service: 06/01/21 Narrative: PreOperative Diagnosis: left distal ureteric stone with hydronephrosis Post Operative Diagnosis: same Procedure: - cystoscopy, left retrograde - [place] dilatation of ureteric orifice under fluoroscopy - left rigid ureteroscopy, stone basketing - left stent placement Surgeon: Dr Carter Robins Anesthesia: General Indications for procedure: this is a 55-year-old female. Prior history suggests gastric bypass performed with gastric sleeve. Also uses Topiramate medication. These are both Known stone promote is. She presented with a 2 week history of left flank discomfort. Worsening in the previous 24-48 hours. Unable to tolerate orals. Admitted to hospital for parental pain medication. CT scan showed distal left ureteric stone proximally 6 mm along with proximal hydroureteronephrosis. Recommendation for intervention based on stone location. Procedure: After informed consent was verified patient was brought to the operating placed in supine position. Anesthesia was administered per protocol. Patient was placed in modified dorsal lithotomy position and prepped and draped in a sterile fashion. Safety pause time-out and side of surgery confirmed. Antibiotics confirmed. A 22 [place] cystoscope was inserted per urethra. Bladder was normal in its entirety. Both ureteric orifices were in normal position. The Left ureteric orifice was cannulated and a retrograde examination was performed. filling defect was seen the distal left portion of the ureter . A Sensor guidewire was placed up to the level of the renal pelvis under fluoroscopy. The rigid cystoscope was removed. A Nidia dilator was placed over the Sensor guidewire and used to dilate the ureteric orifice under fluoroscopy. The dilator was removed. The semi rigid ureteral scope was placed alongside the Sensor guidewire. stone was encountered at the junction between the proximal 3rd in the mid 3rd of the ureter. Using a sure catch stone basket the stone was encircled and using a basket the stone was removed from the ureter. The scope was then placed back into the ureter and ureter re-examined were no other stone debris was seen. The Sensor guidewire was still in place. The rigid scope was removed. A 6 [place] by 24 cm double-J stent was placed into the renal pelvis and bladder under a combination of fluoroscopy and direct visualization. The bladder was emptied. The patient tolerated the procedure well and was extubated in the operating room, and transferred in stable condition to the recovery area. Pathology: stone sent for analysis Drains: 6 [place] by 24 cm double-J stent
[2021-06-01] MEDS: Phenazopyridine HCL 100 MG TABLET PO (17:51)
[2021-06-01] MEDS: Acetaminophen 325 MG TABLET 650 MG PO (17:52)
--- NOTE | 2021-06-02 09:59 | PM.DS ---
DS: Providers Provider Date of Service: 06/01/21 Date of admission: 06/01/21 12:31 Date of discharge: 06/01/21 Primary care physician: Unknown Physician Admitting clinician: Carter Robins Consults: 06/02/21 09:14 Consult to Hospitalist Routine Consulting Provider: Hospitalist Reason For Exam: change in provider Attending physician on discharge: Carter Robins Discharging clinician: Carter Robins DS: Diagnosis Discharge Diagnosis (1) Hydronephrosis: Start date: 06/01/21 Status: Acute (2) Ureterolithiasis: Start date: 06/01/21 Status: Acute DS: Summary Hospital Course Hospital Course: Underwent left ureteroscopy with stone removal and stent placement Status at Discharge Cognitive/behavioral status at discharge: Stable Functional status at discharge: independent ambulation Overall status at discharge: patient is back to baseline Time Spent with Patient Time attestation: Total time spent providing and/or coordinating discharge services: Discharge coordination time: Less than 30 minutes Quality: Stroke Does the patient have a stroke diagnosis?: No Physical Exam Vital Signs: Vital Signs: Last Vital Signs Temp 98.5 F 06/01/21 17:58 Pulse 66 06/01/21 17:58 Resp 16 06/01/21 17:58 BP 120/62 06/01/21 17:58 Pulse Ox 100 06/01/21 17:58 BMI result Body Mass Index 23.1 Const: General: cooperative, healthy appearing, comfortable and no acute distress Orientation/consciousness: patient oriented x3 HENMT: Face and sinus: Yes normal facial exam Mouth: moist mucous membranes Neck: Neck: Yes normal visual inspection, Yes full ROM and Yes trachea midline Chest: Chest palpation & inspection: normal inspection of the chest Resp: Effort & Inspection: normal respiratory effort, able to speak in complete sentences and no respiratory distress GI: Inspection: Yes normal to inspection Back/Spine/Pelvis: Cervical Spine: normal cervical lordosis Thoracic/Lumbar Spine: thoracic and lumbar spine normal to inspection Skin: General skin exam: no rashes or lesions noted Neuro: General: patient oriented x3, tone normal and moves all extremities Extrem: General: Yes normal to inspection and Yes capillary refill normal DS: Data Data Completed and Pending Completed studies during hospitalization [Text1]: CT scan with left distal ureteric stone Pending studies at discharge: Pending at discharge 06/01/21 17:13 Surgical [PTH] Routine Labs on day of discharge: Creatinine 1.0 WBC 10.8, calcium 9.[address] scan - abdomen: Attestation: I personally reviewed and interpreted this imaging study as follows: Radiologist's impression: ITS Impressions Abdomen/Pelvis CT 06/01/21 04:50 IMPRESSION: * There is a 7 x 5 mm stone within the distal LEFT ureter just proximal to the ureterovesical junction associated with moderate upstream hydroureter and mild hydronephrosis/perinephric stranding. * There is a 2 mm stone just above the above-described stone within the distal left ureter. * Evidence of previous abdominal plasty with probable seroma is within the ventral subcutaneous fat and right flank. Fleischner guidelines were followed. Guidance Fluoroscopy 06/01/21 17:19 FINDINGS~\^^ Intraoperative fluoroscopy provided for use by Dr. Robins. Please see operative note for detailed findings. Discharge Plan Discharge Patient Disposition: Home, Self-Care Discharge Diagnosis: left distal ureteric stone Referrals: Carter Robins MD [Physician] - 1 Week Physician,Cierra J [Primary Care Provider] - None Discharge Medications: New phenazopyridine [Pyridium] 100 mg tablet 100 mg PO TID PRN (Reason: spasm) 4 Days Qty: 12 RF: 0 tramadol 50 mg tablet 50 mg PO Q6H PRN (Reason: pain (scale score 4-6)) Qty: 14 RF: 0 tamsulosin 0.4 mg capsule 0.4 mg PO BEDTIME 14 Days Qty: 14 RF: 0 naproxen 500 mg tablet 500 mg PO BID PRN (Reason: pain) 7 Days Qty: 14 RF: 0 Continued multivitamin Tablet 1 tab PO DAILY RF: 0 cyanocobalamin (vitamin B-12) 1,000 mcg Tablet 1,000 mcg PO DAILY RF: 0 folic acid 400 mcg tablet 1 tab PO DAILY RF: 0 calcium carbonate 500 mg calcium (1,250 mg) Tablet 500 mg PO DAILY RF: 0 ibuprofen 200 mg Tablet 400 mg PO Q6H PRN (Reason: Pain) RF: 0 vitamin B complex Tablet 1 tab PO DAILY RF: 0 cholecalciferol (vitamin D3) [Vitamin D3] 25 mcg (1,000 unit) Tablet 25 mcg PO DAILY RF: 0 ferrous sulfate 324 mg (65 mg iron) Tablet,Delayed Release (Dr/Ec) 324 mg PO DAILY RF: 0 Lum[place] 0.01 % drops 1 drp ophthalmic (eye) BEDTIME RF: 0 duloxetine [Cymbalta] 60 mg capsule,delayed release(DR/EC) 120 mg PO BEDTIME RF: 0 topiramate 100 mg tablet 300 mg PO BEDTIME RF: 0 Discharge Orders: Discharge Order (Routine); Ordered 06/01/21 Ordered By: Carter Robins Diet: advance to usual diet Activity on Discharge: As tolerated Stand Alone Forms: Patient Portal Discharge page Care Plan Goals: stone Health Concerns: stone Plan of Treatment: stone Assessment: stone Patient Instructions: Ureteroscopy (DC)
--- NOTE | 2021-06-02 15:58 | MHC.CM.PN ---
Patient d/c'd from PACU before she could be seen by case management.
[2021-06-04 23:37] LABS: Stone Source LEFT URETERAL STONE
== END 2021-06-01 16:01 | disposition home or self-care (01) | DRG 446 ==
LOC: HO.ED 06-01 05:48 → HO.EDOVER 06-01 12:40
PROVIDERS: Urology; Admitting Provider Anesthesiology; Emergency Provider Student in an Organized Health Care Education/Training Program; PCP Nurse Practitioner; Visit Provider Anesthesiology
PROC: 0TC78ZZ Extirpation of Matter from Left Ureter, Via Natural or Artificial Opening Endoscopic (ICD-10-PCS; principal; 2021-06-01 16:30)
DX: N13.2 Hydronephrosis with renal and ureteral calculous obstruction (principal); N17.9 Acute kidney failure, unspecified; Z20.822 Contact with and (suspected) exposure to COVID-19; Z98.84 Bariatric surgery status; Z79.1 Long term (current) use of non-steroidal anti-inflammatories (NSAID); Z88.0 Allergy status to penicillin; Z88.2 Allergy status to sulfonamides; Z79.899 Other long term (current) drug therapy
CPT/HCPCS: 36415; 74176; 80053; 81001; 82365; 83690; 85025; 87635; 88300; 96361; 96372; 96374; 99285; C1758; C1769; C2617; J1100; J1885; J1956; J2250; J2405; J3010; Q9967

== ENCOUNTER → 2021-06-11 13:03 | Outpatient (BNVA) | payer MEDICAID, SELFPAY | PROVIDERS: PCP Nurse Practitioner; Visit Provider Urology | DX: N20.1 Calculus of ureter (principal) | CPT/HCPCS: 52000; 99212 ==

== ENCOUNTER 2021-08-17 15:59 | Outpatient (REF) | payer MEDICAID, SELFPAY ==
--- NOTE | ~2021-08-17 | US_ITS ---
EXAMINATION: US RETROPERITONEAL LIMITED (RENAL ONLY) CLINICAL INFORMATION: Calculus of kidney. COMPARISON: CT abdomen and pelvis 06/01/2021. TECHNIQUE: Real-time imaging of the kidneys. FINDINGS: RIGHT KIDNEY: 9.4 x 4.5 x 5.1 cm (SAG x AP x TRV). The kidney is normal in size, contour, and echogenicity. Renal cortical thickness is normal. No calculi or focal parenchymal lesions. No hydronephrosis. LEFT KIDNEY: 10.2 x 5.4 x 4.4 cm (SAG x AP x TRV). The kidney is normal in size, contour, and echogenicity. Renal cortical thickness is normal. No calculi or focal parenchymal lesions. No hydronephrosis. US/US renal BI IMPRESSION: Normal renal ultrasound.
== END 2021-08-17 16:00 | disposition home or self-care (01) ==
LOC: HO.US 15:59
PROVIDERS: Visit Provider Urology
DX: N20.2 Calculus of kidney with calculus of ureter (principal)
CPT/HCPCS: 76775

== ENCOUNTER → 2021-08-19 08:32 | Outpatient (BNVA) | payer MEDICAID, SELFPAY | PROVIDERS: PCP Nurse Practitioner; Visit Provider Urology | DX: N20.1 Calculus of ureter (principal) | CPT/HCPCS: Q3014 ==

== ENCOUNTER 2022-03-16 16:16 | Outpatient (REF) | payer MEDICAID, SELFPAY ==
--- NOTE | ~2022-03-16 | US_ITS ---
EXAMINATION: US RETROPERITONEAL LIMITED (RENAL ONLY) CLINICAL INFORMATION: Calculus of kidney. COMPARISON: Renal ultrasound 08/17/2021. CT abdomen and pelvis 06/01/2021. TECHNIQUE: Real-time imaging of the kidneys. FINDINGS: RIGHT KIDNEY: 10.2 x 4.2 x 5.4 cm (SAG x AP x TRV). The kidney is normal in size, contour, and echogenicity. Renal cortical thickness is normal. No calculi or focal parenchymal lesions. No hydronephrosis. LEFT KIDNEY: 11.7 x 5.3 x 5.1 cm (SAG x AP x TRV). The kidney is normal in size, contour, and echogenicity. Renal cortical thickness is normal. No calculi or focal parenchymal lesions. No hydronephrosis. US/US renal BI IMPRESSION: No significant sonographic abnormality.
== END 2022-03-16 16:17 | disposition home or self-care (01) ==
LOC: HO.US 16:16
PROVIDERS: Visit Provider Urology
DX: N20.0 Calculus of kidney (principal)
CPT/HCPCS: 76775

== ENCOUNTER → 2022-04-06 13:07 | Outpatient (BNVA) | payer MEDICAID, SELFPAY | PROVIDERS: PCP Nurse Practitioner; Visit Provider Urology | DX: Z13.89 Encounter for screening for other disorder (principal) ==

== ENCOUNTER 2022-04-29 18:24 | Emergency (ER) | payer OTHER, MEDICAID, SELFPAY ==
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
[2022-04-29 18:41] VITALS: BP 134/80; BP 137/83; PULSE 86; PULSE 92; RESP 18; TEMP 36.8; O2SAT 100; BMI 24.7
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
--- NOTE | 2022-04-29 19:30 | ECG_ITS ---
Test Reason : CHEST WALL PAIN Blood Pressure : / mmHG Vent. Rate : 085 BPM Atrial Rate : 085 BPM P-R Int : 132 ms QRS Dur : 070 ms QT Int : 368 ms P-R-T Axes : 082 062 066 degrees QTc Int : 437 ms Normal sinus rhythm Normal ECG When compared with ECG of 05-DEC-2019 13:02, No significant change was found Referred By: Corine Avendaño Electronically Signed By:SADIE RICO MD
[2022-04-29] MEDS: oxyCODONE HCl Immed Release 5 MG TABLET PO (20:11)
[2022-04-29] MEDS: Acetaminophen 325 MG TABLET 975 MG PO (20:11)
== END 2022-04-29 21:24 | disposition home or self-care (01) ==
PROVIDERS: Emergency Provider Emergency Medicine; PCP Nurse Practitioner
DX: S13.4XXA Sprain of ligaments of cervical spine, initial encounter (principal); S83.91XA Sprain of unspecified site of right knee, initial encounter; R51.9 Headache, unspecified; M54.2 Cervicalgia; R10.9 Unspecified abdominal pain; R91.1 Solitary pulmonary nodule; M79.605 Pain in left leg; R07.89 Other chest pain; M79.604 Pain in right leg; M54.6 Pain in thoracic spine; V43.52XA Car driver injured in collision with other type car in traffic accident, initial encounter; Y93.9 Activity, unspecified; Y92.410 Unspecified street and highway as the place of occurrence of the external cause; Y99.9 Unspecified external cause status; Z79.899 Other long term (current) drug therapy
CPT/HCPCS: 70450; 71250; 72125; 73564; 73590; 74176; 93005; 99283; 99284

== ENCOUNTER → 2022-05-11 09:16 | Outpatient (BNVA) | payer MEDICAID, SELFPAY | PROVIDERS: PCP Nurse Practitioner; Visit Provider Urology | DX: Z13.89 Encounter for screening for other disorder (principal) ==

== ENCOUNTER 2023-06-26 12:38 | Outpatient (REF) | payer MEDICAID, SELFPAY ==
--- NOTE | ~2023-06-26 | US_ITS ---
EXAMINATION: US RETROPERITONEAL LIMITED (RENAL ONLY) CLINICAL INFORMATION: Calculus of kidney. COMPARISON: CT abdomen and pelvis 04/29/2022. TECHNIQUE: Real-time imaging of the kidneys. FINDINGS: RIGHT KIDNEY: 10.1 x 5.9 x 5.7 cm (SAG x AP x TRV). The kidney is normal in size, contour, and echogenicity. Renal cortical thickness is normal. No calculi or focal parenchymal lesions. No hydronephrosis. Stable mildly prominent extrarenal pelvis. LEFT KIDNEY: 10.0 x 5.6 x 4.7 cm (SAG x AP x TRV). The kidney is normal in size, contour, and echogenicity. Renal cortical thickness is normal. No calculi or focal parenchymal lesions. No hydronephrosis. US/US renal BI IMPRESSION: No acute sonographic abnormalities.
== END 2023-06-26 12:39 | disposition home or self-care (01) ==
LOC: HO.US 12:38
PROVIDERS: PCP Family Medicine; Visit Provider Urology
DX: N20.1 Calculus of ureter (principal)
CPT/HCPCS: 76775

== ENCOUNTER 2023-07-21 13:08 | Outpatient (AMB) | payer MEDICAID, SELFPAY ==
--- NOTE | 2023-07-21 13:09 | MHC.OFFVIS ---
Intake Intake Visit Reasons: US results (Confirmed) Intake Note: Patient is Present for Telephone Follow Up Ultrasound Urology Med: Vitamin B6, Tamsulosin Antibiotic Allergy: Penicillins, Sulfa, Bactrim Blood Thinner: None Allergies Penicillins [PCN] Allergy (Severe, Verified 05/11/22 09:17) RASH, ANAPHYLAXIS Sulfa (Sulfonamide Antibiotics) [SULFA (SULFONAMIDE ANTIBIOTICS)] Allergy (Mild, Verified 05/11/22 09:17) RASH Bactrim Allergy (Unknown, Uncoded 05/11/22 09:17) Unknown HPI HPI Comments History of Present Illness Details Charisma is a pleasant female. She is a patient of Dr. Ayala. Seen for the following urologic conditions - nephrolithiasis Yearly follow-up Imaging shows no stones Telemedicine evaluation 15 minute consultation [email or web address] Video attempted Previously Encouraged to take TUMS prior to evening meal 12 month follow-up Nephrolithiasis Initial stone presentation 2021 Background of gastric sleeve Intervention - 06/12 left ureteroscopy Stone composition - 06/12 calcium oxalate monohydrate 50%, carbonate apatite 50% - has been on topiramate Imaging - 08/10 renal ultrasound no stone seen - 03/12 renal ultrasound no stone seen - 06/14 renal ultrasound no stone Therapeutic plan - encourage fluids - avoid sodium - interval surveillance - 12 months [facility] Medical History Anxiety Depression Fibromyalgia Glaucoma Intestinal malabsorption following gastrectomy Surgical History History of abdominoplasty History of appendectomy History of repair of hiatal hernia History of sleeve gastrectomy History of tubal ligation S/P laparoscopic cholecystectomy Family History Father Myocardial infarction Mother Metastasis from rectal cancer Sister No problems noted. Brother No problems noted. Maternal Uncle Prostate cancer Lung cancer Maternal Aunt Breast cancer Son No problems noted. Daughter No problems noted. Daughter No problems noted. Social History Alcohol intake: current Alcohol intake frequency: a few times a month Comment: SSS Patient Tobacco Use Status: Never used Tobacco Review of Systems Const All systems reviewed & are unremarkable except as noted in HPI and below Reports no additional complaints Resp Reports no additional complaints GI Reports no additional complaints Reports as per HPI Musc Reports no additional complaints Physical Exam Telemedicine evaluation Appropriate responses Regular breathing rate and rhythm HEENT Head: Yes normal to inspection Ears: hearing grossly normal bilaterally Eyes General: appearance normal, both eyes and all related structures Neck Neck: Yes normal visual inspection Chest Chest palpation & inspection: normal inspection of the chest Resp Effort & Inspection: normal respiratory effort and able to speak in complete sentences Assessment & Plan Assessment & Plan (1) Ureterolithiasis: Comment: 06/12 Calcium oxalate monohydrate stone on topiramate Code(s): N20.1 - Calculus of ureter Plan Twelve month follow-up Imaging Orders: Orders US renal BI 12 Months N20.1 - Calculus of ureter Patient Instructions: Imaging studies, laboratory and physical exam results were discussed and reviewed in detail. No major barriers to patient understanding were identified. An opportunity to ask questions regarding the treatment plan was provided. All questions were answered. The patient expressed understanding and agreement with the above treatment plan. The patient is aware they should contact our office by phone for worsening of their current condition or the appearance of new urologic symptoms. Compliance is encouraged with any medications and followup testing that is ordered. It is a privilege to participate in the urologic care of your patient. If you have any questions or concerns regarding treatment for the above conditions, or other urologic issues, please do not hesitate to contact me. The office telephone contact is [phone]. This note is constructed using voice recognition software. While every effort has been made to ensure accuracy forensic materials engineer errors may have been included. Yours sincerely, Dr Carter Robins MD, NAT [facility] - Urology Providers of Expert, Compassionate Care for the Genitourinary System Telehealth Telehealth Location of provider rendering services: practice address Location of patient: address on file Patient Identification confirmed using: Name, : Yes Telehealth method: video Patient verbally consented to treatment: Yes Patient verbally consented to billing insurance company: Yes Patient informed of any privacy concerns related to visit: Yes Coding Level of Care Code Tele Est Pt Level 3 (13429) Diagnoses Ureterolithiasis N20.1
== END 2023-07-21 13:48 | disposition home or self-care (01) ==
LOC: HO.HUSH 13:08
PROVIDERS: PCP Family Medicine; Visit Provider Urology
DX: N20.1 Calculus of ureter (principal)
CPT/HCPCS: 99213

== ENCOUNTER → 2023-07-21 13:08 | Outpatient (BNVA) | payer MEDICAID, SELFPAY | PROVIDERS: PCP Family Medicine; Visit Provider Urology ==

== ENCOUNTER 2024-07-15 13:00 | Outpatient (REF) | payer MEDICAID, SELFPAY ==
--- NOTE | ~2024-07-15 | US_ITS ---
CLINICAL HISTORY: N20.1 - Calculus of ureter US renal with Color Doppler Comparison: None Findings: Right kidney normal size and echotexture, 10.3 cm length. No hydronephrosis calculus or mass. Normal color flow. Extrarenal pelvis Left kidney normal size and echotexture, 10.0 cm length. No hydronephrosis or renal masses. Normal color flow. 4 x 4 x 3 mm nonobstructing caliceal stone midpole. Impression: 1. Nephrolithiasis on the left. No evidence of obstructive uropathy This document has been electronically signed by: Jonny Fragoso MD on 07/16/2024 10:33:39
== END 2024-07-15 13:01 | disposition home or self-care (01) ==
LOC: HO.US 13:00
PROVIDERS: PCP Family Medicine; Visit Provider Urology
DX: N20.1 Calculus of ureter (principal)
CPT/HCPCS: 76775

== ENCOUNTER → 2024-07-15 13:02 | Outpatient (BNV) | payer MEDICAID, SELFPAY | PROVIDERS: PCP Family Medicine; Visit Provider Radiology Diagnostic Radiology | DX: N20.0 Calculus of kidney (principal) | CPT/HCPCS: 76775 ==

== ENCOUNTER 2024-09-06 13:22 | Outpatient (AMB) | payer MEDICAID, SELFPAY ==
--- NOTE | 2024-09-06 13:22 | A.OFFVIS_ITS ---
Intake Visit Reasons: 1y/US Intake Note: Pt presents as a telehealth appt today for a 1 year follow up/US. Allergies Penicillins [PCN] Allergy (Severe, Verified 09/06/24 13:22) RASH, ANAPHYLAXIS Sulfa (Sulfonamide Antibiotics) [SULFA (SULFONAMIDE ANTIBIOTICS)] Allergy (Mild, Verified 09/06/24 13:22) RASH Bactrim Allergy (Unknown, Uncoded 09/06/24 13:22) Unknown HPI Comments Details: Charisma is a pleasant female. She is a patient of Dr. Ayala. She is seen for the following urologic conditions - nephrolithiasis Yearly follow-up Imaging shows no stones Telemedicine evaluation 15 minute consultation Doximity anika Video attempted Previously Encouraged to take TUMS prior to evening meal Small stone possibly on ultrasound Remain on vitamin B6 Add allopurinol 12 month follow-up Nephrolithiasis - prior gastric sleeve on topiramate headaches Initial stone presentation 2021 Background of gastric sleeve Intervention - 06/12 left ureteroscopy Stone composition - 06/12 calcium oxalate monohydrate 50%, carbonate apatite 50% - has been on topiramate Imaging - 08/10 renal ultrasound no stone seen - 03/12 renal ultrasound no stone seen - 06/14 renal ultrasound no stone - 08/13 renal ultrasound 3 mm stone left side Therapeutic plan - encourage fluids - avoid sodium - interval surveillance - 12 months [facility] Medical History Intestinal malabsorption following gastrectomy Glaucoma Depression Anxiety Fibromyalgia Surgical History History of sleeve gastrectomy History of repair of hiatal hernia History of tubal ligation S/P laparoscopic cholecystectomy History of appendectomy History of abdominoplasty Family History Father Myocardial infarction Mother Metastasis from rectal cancer Sister No problems noted. Brother No problems noted. Maternal Uncle Prostate cancer Lung cancer Maternal Aunt Breast cancer Son No problems noted. Daughter No problems noted. Daughter No problems noted. Social History Alcohol intake: current Alcohol intake frequency: a few times a month Comment: [facility] Patient Tobacco Use Status: Never used Tobacco Review of Systems Const All systems reviewed & are unremarkable except as noted in HPI and below Reports no additional complaints Resp Reports no additional complaints GI Reports no additional complaints Reports as per HPI Musc Reports no additional complaints Physical Exam Telemedicine evaluation Appropriate responses Regular breathing rate and rhythm HEENT Head: Yes normal to inspection Ears: hearing grossly normal bilaterally Eyes General: appearance normal, both eyes and all related structures Neck Neck: Yes normal visual inspection Chest Chest palpation & inspection: normal inspection of the chest Resp Effort & Inspection: normal respiratory effort and able to speak in complete sentences Telehealth Telehealth Telehealth Platform: What's in My Handbag Location of provider rendering services: practice address Location of patient: address on file Patient Identification confirmed using: Name, : Yes Telehealth method: video Patient verbally consented to treatment: Yes Patient verbally consented to billing insurance company: Yes Patient informed of any privacy concerns related to visit: Yes Minutes spent on Phone/Video with Pt.: 15 Assessment & Plan Assessment & Plan (1) Ureterolithiasis: Comment: 06/12 Calcium oxalate monohydrate stone on topiramate Code(s): N20.1 - Calculus of ureter Category: Medical Plan Twelve month follow-up Refill vitamin B6 and initiate allopurinol Orders: Orders US renal BI 12 Months N20.1 - Calculus of ureter Medications: New allopurinol 100 mg PO DAILY 90 days 90 tabs 3RF N20.1 - Calculus of ureter Changed From pyridoxine (vitamin B6) 100 mg PO DAILY 90 days 90 tabs 1RF N20.0 - Calculus of kidney, N20.1 - Calculus of ureter To pyridoxine (vitamin B6) 50 mg PO DAILY 90 days 90 tabs 3RF N20.0 - Calculus of kidney, N20.1 - Calculus of ureter Patient Instructions: This note is constructed using voice recognition software. While every effort has been made to ensure accuracy players assistant errors may have been included. Imaging studies, laboratory and physical exam results were discussed and revie wed in detail. No major barriers to patient understanding were identified. An opportunity to ask questions regarding the treatment plan was provided. All questions were answered. The patient expressed understanding and agreement with the above treatment plan. The patient is aware they should contact our office by phone for worsening of their current condition or the appearance of new urologic symptoms. Compliance is encouraged with any medications and followup testing that is ordered. It is a privilege to participate in the urologic care of your patient. If you have any questions or concerns regarding treatment for the above conditions, or other urologic issues, please do not hesitate to contact me. The office telephone contact is [phone]. Sincerely, Dr Carter Robins MD, [facility] - Urology Compassionate Specialist Care for the Genitourinary System Coding Level of Care Code Tele Est Pt Level 4 (03985) Diagnoses Ureterolithiasis N20.1
--- OUTSIDE RECORDS SUMMARY | 2024-09-06 13:48 | XMS_ITS | Data Portability ---
Author Organization [facility] [place] Address [address] [place] [id number] Assessment Encounter Date Assessment Date Assessment LastModified by Organization Details LastModified Time 01/23/2024 01/23/2024 Pt with food insecurity related to lack of financial resources to purchase food as evidenced by food insecurity screening results and pt report of no money for food, HPI Intervention: enroll in [employer] wellness program, provide education related to food insecurity, how to obtain food, purchasing food, meal planning, meal preparation, balanced eating to increase nutrient intake Monitoring/Evalu ation: Monitor for changes in dietary intake, food intake, food quality, weight, nutrition related labs Patient expressed understanding of the education provided. Pt felt confident that they could modify eating habits and diet as discussed. Encouraged patient to follow up in 3-4 weeks.?? Took follow-up survey with patient to encourage follow-up scheduling and completion: https://forms.gl [email or web address] Dq7 Completed NutriQuiz with patient and identified opportunities for improvement in diet quality no not available in portals NEXT: f/u with MTMs; weight, dietary intake, meal planning Visit Start Time: 11:00 AM EST Visit End Time: 12:02 PM EST Total minutes providing MNT via audio or video: 62 minutes [email or web address] Not available 01/23/2024 14:36:08 02/23/2024 02/23/2024 Pt continues with food insecurity related to lack of financial resources to purchase food as evidenced by food insecurity screening results and pt report of no money for food, HPI Intervention: enroll in [employer] wellness program, provide education related to food insecurity, how to obtain food, purchasing food, meal planning, meal preparation, balanced eating to increase nutrient intake Monitoring/Evalu ation: Monitor for changes in dietary intake, food intake, food quality, weight, nutrition related labs Patient expressed understanding of the education provided. Pt felt confident that they could modify eating habits and diet as discussed. Encouraged patient to follow up in 3-4 weeks.?? Took follow-up survey with patient to encourage follow-up scheduling and completion: https://forms.gl [email or web address] Dq7 Completed NutriQuiz with patient and identified opportunities for improvement in diet quality no not available in portals NEXT: f/u with MTMs; weight, dietary intake, meal planning Visit Start Time: 11:03 AM EST Visit End Time: 11:57 AM EST Total minutes providing MNT via audio or video: 54 minutes [email or web address] Not available 02/23/2024 11:59:25 Plan of Treatment Reminders Order Date Submit Date Provider Last Modified By Organization Details Last Modified Time Details Appointments None record ed. Lab None record ed. Referral None record ed. Procedures None record ed. Surgeries None record ed. Imaging None record ed. Medication Orders None record ed. Patient TargetsNo targets recorded. Patient Instructions Encounter Date Encounter Id Patient Instructions Last Modified By Organization Details Last Modified Time 01/23/2024 [id number] [facility] Packet [email or web address] Not available 01/23/2024 14:36:40 Aprenda acerca d e la inseguridad alimentaria - [Learning About Getting Help With Food] bsenko Not available 01/23/2024 14:36:40 Saludos! Tristin las siguietes instrucciones: 1. Recuerde verificar coleman correo electr??raheel para verificar que recibio la invitacion y el enlace para activar el portal del paciente. Siga las instrucciones del enlace. 2. Gabriella vez pueda acceder la cuenta de [employer], tristin la secci??n de recetas para ideas de meriendas o comidas. bsenko Not available 01/23/2024 12:03:26 02/23/2024 [id number] [facility] Packet bsenko Not available 02/23/2024 11:59:27 Aprenda acerca d e la inseguridad alimentaria - [Learning About Getting Help With Food] bsenko Not available 02/23/2024 11:59:27 Saludos! Tristin las siguietes instrucciones: 1. Recuerde verificar coleman correo electr??raheel para verificar que recibio la invitacion y el enlace para activar el portal del paciente. Siga las instrucciones del enlace. 2. Gabriella vez pueda acceder la cuenta de [employer], tristin la secci??n de recetas para ideas de meriendas o comidas. [email or web address] Not available 02/23/2024 11:04:03 Reason for Referral None Reported. Medical Equipment None Reported. Medications Name Sig Start Date Stop Date Status Note LastModified by Organization Details LastModified Time cyclobenzapr ine 10 mg tablet TAKE 1 TABLET BY MOUTH TWICE A DAY NEEDED active Not Available Not Available No t Available nabumetone 750 mg tablet TAKE 1 TABLET BY MOUTH TWICE A DAY active Not Available Not Available No t Available trazodone 50 mg tablet TAKE 1 TABLET BY MOUTH EVERY DAY AT BEDTIME FOR SLEEP active Not Available Not Available No t Available citalopram 10 mg tablet TAKE 1 TABLET BY MOUTH EVERY DAY active Not Available Not Available No t Available sumatriptan 100 mg tablet PLEASE SEE ATTACHED FOR DETAILED DIRECTIONS active Not Available Not Available N ot Available propranolol ER 60 mg capsule,24 hr,extended release TAKE 1 CAPSULE BY MOUTH EVERY DAY FOR MIGRAINE PREVENTION active Not Available Not Available N ot Available metronidazol e 500 mg tablet TAKE 1 TABLET BY MOUTH TWICE A DAY FOR 7 DAYS active Not Available Not Available No t Available prochlorpera zine maleate 10 mg tablet active Not Available Not Available Not Available divalproex 500 mg tablet,delay ed release TAKE 2 TABLETS BY MOUTH TWICE DAILY active Not Available Not Available No t Available triamcinolon e acetonide 0.1 % topical cream APPLY THIN COAT TO AFFECTED AREA TWICE A DAY active Not Available Not Available No t Available erythromycin 5 mg/gram (0.5 %) eye ointment PLACE 1/2 INCH STRIP INTO EACH EYE EVERY 4 HOURS FOR 7 DAYS active Not Available Not Available No t Available orphenadrine citrate ER 100 mg tablet,exten ded release TAKE 1 TABLET TWICE A DAY BY ORAL ROUTE NEEDED. active Not Available Not Available No t Available timolol maleate 0.5 % eye gel forming solution APPLY 1 DROP INTO BOTH EYES EVERY MORNING active Not Available Not Available No t Available morphine 15 mg immediate release tablet TAKE 1 TABLET BY MOUTH EVERY 4 HOURS NEEDED FOR BACK PAIN active Not Available Not Available No t Available topiramate 100 mg tablet TAKE 3 TABLETS BY MOUTH EVERY DAY active Not Available Not Available No t Available fluticasone propionate 50 mcg/actuatio n nasal spray,suspen yair USE 1 SPRAY INTO EACH NOSTRIL DAILY NEEDED active Not Available Not Available No t Available sertraline 50 mg tablet TAKE 1 TABLET BY MOUTH EVERY DAY IN THE MORNING active Not Available Not Available No t Available doxycycline hyclate 100 mg tablet TAKE 1 TABLET BY MOUTH TWICE A DAY FOR 7 DAYS active Not Available Not Available No t Available duloxetine 60 mg capsule,unique yed release TAKE 2 CAPSULES BY MOUTH EVERY DAY active Not Available Not Available No t Available Lumigan 0.01 % eye drops INSTILL 1 DROP INTO BOTH EYES IN THE EVENING active Not Available Not Available No t Available Rhopressa 0.02 % eye drops INSTILL 1 DROP INTO LEFT EYE EVERY NIGHT active Not Available Not Available Not Available Vitals Date Recorded Body height Body mass index (BMI) Body weight Provider Name and Address Organization Details Last Updated DateTime 02/23/2024 160.02 cm 24.8 kg/m2 13309.93 g Moriah Lima, RD [address], [id number] 02/23/2024 11:42:11 Date Recorded Body height Body mass index (BMI) Body weight Provider Name and Address Organization Details Last Updated DateTime 01/23/2024 160.02 cm 25 kg/m2 76565.52 g Moriah Lima, RD [address], [phone], [facility] 01/23/2024 11:18:18 Social History None recorded. Functional Status None recorded. Mental Status None recorded. Family History Nothing Reported. Medical History Condition Response High Blood Pressure N Hyperthyroidism N Autoimmune Condition N Hypothyroidism N Depression Y Obesity N Kidney Disease (CKD/ESRD) N Cancer N Stroke N Cardiovascular Disease N Long-term antibiotic use N Irritable Bowel Syndrome N Type 1 Diabetes N Anxiety Y Elevated Cholesterol N Celiac Disease N Type 2 Diabetes N Long-term corticosteroid use N Prediabetes N Inflammatory Bowel Disease N Heart Attack N Allergies N GERD, Reflux or Heartburn N Gynecological HistoryNo gynecological history recorded. Obstetrics History GPAL:G 0 P 0 0 0 0 Past Encounters Encounter ID Performer Location Encounter Start Date Encounter Closed Date Diagnosis/Indication Diagnosis SNOMED-CT Code Diagnosis ICD10 Code Diagnosis Note [id number] [facility] [place] [address] [facility],[address] [place] [address] 01/23/2024 11:03:04 01/23/2024 14:36:53 Diet education 36072670 Z71.3 [employer] services, food insecurity , food support program, dietary intake. [id number] Moriah [facility]ENE [facility]ima [facility] [place] [address] [facility],[address] [place] [address] 02/23/2024 11:03:28 02/23/2024 12:01:49 Diet education 32999113 Z71.3 Discussed food insecurity , SNAP benefit and utilizatio n, food support program, food purchasing , balanced eating to increase intake of nutrient dense foods- fruits and vegetables at snack times, meal timing, mindfulnes s and eating. Health Concerns Section Related Observation LastModified by Organization Detai ls LastModified Time None Recorded Concern Status LastModified by Organization Details LastModified Time None Recorded Advance Directives Directive None Recorded Payers Encounter Date Sequence Insurance Name Policy Number Policy Mathews Covered Member ID Mathews Member ID Guarantor Name 01/23/2024 1 [facility] Charisma Catincak [id number] Charisma Catinchi 02/23/2024 1 [facility] [id number] Charisma Catinchi Notes Date Note Type Note Provider Name and Address Organization Details Recorded Time 01/23/2024 text/html 1. El paciente h a sido informado de que danny consentimiento verbal est?? siendo capturado y documentado.: {{YES*}}2. Se obtuvo el consentimiento verbal para tratar del paciente o mobile sales expert: {{YES*}}3. Se devine informado al paciente de lo que es gabriella visita de telesalud: la telesalud es la pr??ctica de utilizar tecnolog??a de telecomunicaciones para evaluar, diagnosticar y atender a los pacientes a distancia.4. Se devine informado al paciente que existe la posibilidad de p??rdida de datos debido a gabriella jerica t??cnica.5. El paciente devine sido informado y devine reconocido que [facility]?? a coleman seguro, emery que es posible que no sea un beneficio cubierto. {{YES*}}6. El paciente recibi?? un Aviso de pr??cticas de privacidad y formularios de consentimiento por escrito en coleman Portal del paciente y se le alent?? a revisarlos despu??s de la visita de telesalud.7. En esta visita de telesalud est??n presentes ___NOMBRE DEL PROVEEDOR_Moriah Lima RD__ y ? ? ___NOMBRE DEL PACIENTE_Teresita Catinchi__. El paciente se une a la visita desde la siguiente ubicaci??n: ___ESTADO_[place]__8. El proveedor devine informado al paciente que el paciente tambi??n recibir?? formularios de consentimiento a suzanne??s de un correo electr??raheel automatizado. Pt seen by SELENE regarding nutrition counseling for food insecurity, weight management post bariatric surgery. Pt reports:-bariatric surgery 6 years ago-within target weight range-wants to change eating habits and food choices to healthier options-goal weight lose 5 lbs.-shops 1xmonth- goes to store 1 x week-lives near grocery store-transportation: doesn't drive, but sister helps drive to store-full kitchen- stove, fridge-does not cookpt not working due to health- convulsions; struggles with food securityDTA Rendon, SNAP24 hour:sandwich egg w butter or olive oil, diet coke (no coffee, no juice)cheese stick; 3-4 saltines waternerds candy-1 boxpasta-from [facility]- 1/4 of serving- can't tolerate larger portions, diet cokebuys fruit and vegetables but don't last the whole month.Exercise: started with sister to walk, bike, but stopped to fractured toe and got sick with cold. Moriah Lima RD [address] [facility],[address], [place], [address], [facility] 01/23/2024 14:36:43 02/23/2024 text/html [employer] ADIMER eported bypatient.Appetite:good Food Allergies or Intolerances:no food allergies GI:no heartburn; no constipation Supplements:currently taking vitamin supplement Activity:does not exercise 1. El paciente devine sido informado de que danny consentimiento verbal est?? siendo capturado y documentado.: {{YES*}}2. Se obtuvo el consentimiento verbal para tratar del paciente o mobile sales expert: {{YES*}}3. Se devine informado al paciente de lo que es gabriella visita de telesalud: la telesalud es la pr??ctica de utilizar tecnolog??a de telecomunicaciones para evaluar, diagnosticar y atender a los pacientes a distancia.4. Se devine informado al paciente que existe la posibilidad de p??rdida de datos debido a gabriella jerica t??cnica.5. El paciente devine sido informado y devine reconocido que [facility] facturar?? a coleman seguro, emrey que es posible que no sea un beneficio cubierto. {{YES*}}6. El paciente recibi?? un Aviso de pr??cticas de privacidad y formularios de consentimiento por escrito en coleman Portal del paciente y se le alent?? a revisarlos despu??s de la visita de telesalud.7. En esta visita de telesalud est??n presentes ___NOMBRE DEL PROVEEDOR_Moriah Lima RD__ y ? ? ___NOMBRE DEL PACIENTE_Teresita Catinchi__. El paciente se une a la visita desde la siguiente ubicaci??n: ___ESTADO_[place]__8. El proveedor devine informado al paciente que el paciente tambi??n recibir?? formularios de consentimiento a suzanne??s de un correo electr??raheel automatizado. Pt seen by RD regarding nutrition counseling for food insecurity, weight management post bariatric surgery. Pt reports:-bariatric surgery 6 years ago-within target weight range-wants to change eating habits and food choices to healthier options-goal weight lose 5 lbs.-shops 1xmonth- goes to store 1 x week-lives near grocery store-transportation: doesn't drive, but sister helps drive to store-full kitchen- stove, fridge-does not cookpt not working due to health- convulsions; struggles with food securityDTA BOOKER Rendon24 hour:sandwich egg w butter or olive oil, diet coke (no coffee, no juice)cheese stick; 3-4 saltines waternerds candy-1 boxpasta-from [employer]- carbonara- 1/4 of serving- can't tolerate larger portions, diet cokebuys fruit and vegetables but don't last the whole month.Exercise: started with sister to walk, bike, but stopped to fractured toe and got sick with cold. 10/4Pt still waiting to hear from [employer] for food support program.Pt feels fullness; tries to eat slower- tends to eat too fast.Sister cooks most meals for pt.wt: 140 Lbs.Pt participating in SNAP HIP program to buy fruits and vegetables. Moriah Lima RD 595 [facility], [place], [address], [facility] [place] 02/23/2024 11:59:29 OBGyn Episode No OBEpisode recorded.
== END 2024-09-06 14:01 | disposition home or self-care (01) ==
LOC: HO.HUSH 13:22
PROVIDERS: PCP Family Medicine; Visit Provider Urology
DX: N20.1 Calculus of ureter (principal)
CPT/HCPCS: 98006